=== PATIENT | male | born 1965 | race Caucasian/White ===

== ENCOUNTER 2021-07-17 13:50 | Inpatient (IN) | payer BC ==
[2021-07-17] MEDS ORDERED: Sodium Chloride 0.9% 10 ML Syringe FLUSH PRN (14:07)
[2021-07-17] MEDS ORDERED: Sodium Chloride 0.9% 2.5 ML Syringe FLUSH PRN (14:07)
[2021-07-17] MEDS ORDERED: Dexamethasone 4 MG/ML SDV IVPUSH ONE (14:10)
[2021-07-17] MEDS ORDERED: REMDESIVIR 200 MG in Sodium Chloride 0.9% 250 ML IV ONE ×2 (14:10→14:30)
--- NOTE | 2021-07-17 14:15 | EDM.PDOC ---
ED HPI GENERAL MEDICAL PROBLEM - General Chief Complaint: Respiratory Problem Stated Complaint: COVID POS, SOB Time Seen by Provider: 07/17/21 14:07 - History of Present Illness INITIAL COMMENTS - FREE TEXT/NARRATIVE: 55-year-old male presents to the emergency department complaining of shortness of breath. Patient has had cough and runny nose symptoms since 08 July. He started having shortness of breath over the next several days and was swabbed and positive for Covid today. He was sent over to the ED when he was noted to have an O2 saturation of 64%. Patient states that he had fevers at home. No chest pain. Patient denies history of blood clots. No leg swelling. No recent travel or injury or cancer or surgery. Patient denies history of asthma or COPD - Related Data Allergies Allergy/AdvReac Type Severity Reaction Status Date / Time No Known Allergies Allergy Verified 07/17/21 14:17 Home Meds: Home Meds . [No Known Home Meds] 07/17/21 [History] Past Medical History HEENT History: Reports: None Other HEENT History: sometimes wears glasses Cardiovascular History: Reports: None Respiratory History: Reports: None Gastrointestinal History: Reports: None Genitourinary History: Reports: None Musculoskeletal History: Reports: Arthritis, Fracture Other Musculoskeletal History: hx of fx right hand, left shoulder, left elbow Neurological History: Reports: None Psychiatric History: Reports: None Endocrine/Metabolic History: Reports: Obesity/BMI 30+ Hematologic History: Reports: None Immunologic History: Reports: None Oncologic (Cancer) History: Reports: None Dermatologic History: Reports: None - Past Surgical History Musculoskeletal Surgical History: Reports: Arthroscopic Knee, Knee Replacement, Shoulder Surgery ED ROS GENERAL - Review of Systems Review Of Systems: Comprehensive ROS is negative, except as noted in HPI. ED EXAM, GENERAL - Physical Exam Exam: See Below Free Text/Narrative:: CONSTITUTIONAL: Moderate distress SKIN: Warm, dry, and intact without rash HENT: Normocephalic, atraumatic, PULMONARY: Apnea, mild retractions, intermittent rales and wheeze CARDIOVASCULAR: regular rate, No murmur, rubs, or gallops GASTROINTESTINAL: soft, nondistended, nontender NEUROLOGIC: normal speech, II-XII intact. light touch/5/5 power equal and symmetric in upper and lower extremities without deficit MUSCULOSKELETAL: no gross deformities, atraumatic PSYCHIATRIC: normal mood and affect Course - Vital Signs Text/Narrative:: Differential diagnosis: Covid, bacterial pneumonia, CHF, PE, other Patient presents with shortness of breath and hypoxia in the setting of Covid pneumonia. Patient given steroids and remdesivir. The patient was on CPAP but did have some degree of wheezing so inline nebulizations were given. Patient was unable to maintain his saturations on high flow nasal cannula but is quite comfortable on CPAP eight. Admission for continued treatment and management Critical care: I spent 45 minutes of critical care time with this patient not including reportable procedures. There was an acute impairment of an organ system with a high probability of imminent or life threatening deterioration in the patient`s condition. Interventions and changes required in the course of therapy are located in the chart. Time involved was spent in direct patient care, reviewing ancillary data, old records, consulting with decision makers, EMS, other doctors, giving orders and documenting. Last Recorded V/S: Last Vital Signs Temp 38.8 C H 07/17/21 14:11 Pulse 118 H 07/17/21 16:01 Resp 30 H 07/17/21 16:01 BP 129/91 H 07/17/21 16:01 Pulse Ox 95 07/17/21 16:01 - Orders/Labs/Meds Orders: Active Orders 24 hr Category Date Time Status Admission Status [Patient Status] [ADT] Stat ADT 07/17/21 16:48 Active Cardiac Monitoring [RC] . DIRECTED Care 07/17/21 14:07 Active Pulse Oximetry [RC] ASDIRECTED Care 07/17/21 14:07 Active RT Aerosol Therapy [RC] ASDIRECTED Care 07/17/21 14:31 Active RT Post Treatment Assessment [RC] Click to Edit Care 07/17/21 14:19 Active RT Pre-Treatment Assessment [RC] Click to Edit Care 07/17/21 14:19 Active COVID-19/FLU A+B/RSV [MOLEC] Stat Lab 07/17/21 14:09 Ordered CULTURE BLOOD [BC] Stat Lab 07/17/21 14:20 Received CULTURE BLOOD [BC] Stat Lab 07/17/21 14:35 Received UA W/MARIA ELENA RFLX IF INDICATED [URIN] Stat Lab 07/17/21 14:08 Ordered Sodium Chloride 0.9% [Saline Flush] Med 07/17/21 14:07 Active 10 ml FLUSH ASDIRECTED PRN Sodium Chloride 0.9% [Saline Flush] Med 07/17/21 14:07 Active 2.5 ml FLUSH ASDIRECTED PRN Blood Culture x2 Reflex Set [OM.PC] Stat Oth 07/17/21 14:08 Ordered Saline Lock Insert [OM.PC] Stat Oth 07/17/21 14:07 Ordered Medication Orders Sodium Chloride (Sodium Chloride 0.9% 10 Ml Syringe) 10 ml FLUSH ASDIRECTED PRN PRN Reason: Keep Vein Open Last Admin: 07/17/21 14:39 Dose: 10 ml Documented by: LIZZIE Sodium Chloride (Sodium Chloride 0.9% 2.5 Ml Syringe) 2.5 ml FLUSH ASDIRECTED PRN PRN Reason: Keep Vein Open Last Admin: 07/17/21 14:39 Dose: 2.5 ml Documented by: [id number] Labs: Laboratory Tests 07/17/21 07/17/21 07/17/21 Range/Units 14:06 14:06 14:06 WBC 10.64 (4.0-11.0) K/uL RBC 5.78 (4.50-5.90) M/uL Hgb 16.1 (13.0-17.0) g/dL Hct 47.4 (38.0-50.0) % MCV 82.0 (80.0-98.0) fL MCH 27.9 (27.0-32.0) pg MCHC 34.0 (31.0-37.0) g/dL RDW Std Deviation 46.8 (28.0-62.0) fl RDW Coeff of Mary Anne 16 H (11.0-15.0) % Plt Count 157 (150-400) K/uL MPV 10.60 (7.40-12.00) fL Add Manual Diff YES Neutrophils % (Manual) 83 H (48.0-80.0) % Band Neutrophils % 1 % Lymphocytes % (Manual) 11 L (16.0-40.0) % Monocytes % (Manual) 5 (0.0-15.0) % Nucleated RBC % 0.0 /100WBC Absolute Seg Neuts 8.8 H (1.4-5.7) Band Neutrophils # 0.1 Lymphocytes # (Manual) 1.2 (0.6-2.4) Monocytes # (Manual) 0.5 (0.0-0.8) Nucleated RBCs # 0 K/uL INR D-Dimer, Quantitative (0.0-0.50) mg/L FEU Sodium 132 L (136-148) mmol/L Potassium 3.7 (3.5-5.1) mmol/L Chloride 94 L (98-107) mmol/L Carbon Dioxide 25.1 (21.0-32.0) mmol/L BUN 9 (7.0-18.0) mg/dL Creatinine 1.0 (0.8-1.3) mg/dL Est Cr Clr Drug Dosing 91.61 mL/min Estimated GFR (MDRD) > 60.0 ml/min Glucose 124 H (74-106) mg/dL Lactic Acid 1.9 (0.4-2.0) mmol/L Calcium 8.5 (8.5-10.1) mg/dL Total Bilirubin 0.8 (0.2-1.0) mg/dL AST 41 H (15-37) IU/L ALT 39 (14-63) IU/L Alkaline Phosphatase 65 (46-116) U/L Troponin I < 0.050 (0.000-0.056) ng/mL C-Reactive Protein 24.80 H (0.00-0.90) mg/dL B-Natriuretic Peptide (<100) PG/ML Total Protein 7.5 (6.4-8.2) g/dL Albumin 2.8 L (3.4-5.0) g/dL Globulin 4.7 H (2.6-4.0) g/dL Albumin/Globulin Ratio 0.6 L (0.9-1.6) 07/17/21 07/17/21 Range/Units 14:06 14:06 WBC (4.0-11.0) K/uL RBC (4.50-5.90) M/uL Hgb (13.0-17.0) g/dL Hct (38.0-50.0) % MCV (80.0-98.0) fL MCH (27.0-32.0) pg MCHC (31.0-37.0) g/dL RDW Std Deviation (28.0-62.0) fl RDW Coeff of Mary Anne (11.0-15.0) % Plt Count (150-400) K/uL MPV (7.40-12.00) fL Add Manual Diff Neutrophils % (Manual) (48.0-80.0) % Band Neutrophils % % Lymphocytes % (Manual) (16.0-40.0) % Monocytes % (Manual) (0.0-15.0) % Nucleated RBC % /100WBC Absolute Seg Neuts (1.4-5.7) Band Neutrophils # Lymphocytes # (Manual) (0.6-2.4) Monocytes # (Manual) (0.0-0.8) Nucleated RBCs # K/uL INR 1.05 D-Dimer, Quantitative 0.99 H (0.0-0.50) mg/L FEU Sodium (136-148) mmol/L Potassium (3.5-5.1) mmol/L Chloride (98-107) mmol/L Carbon Dioxide (21.0-32.0) mmol/L BUN (7.0-18.0) mg/dL Creatinine (0.8-1.3) mg/dL Est Cr Clr Drug Dosing mL/min Estimated GFR (MDRD) ml/min Glucose (74-106) mg/dL Lactic Acid (0.4-2.0) mmol/L Calcium (8.5-10.1) mg/dL Total Bilirubin (0.2-1.0) mg/dL AST (15-37) IU/L ALT (14-63) IU/L Alkaline Phosphatase (46-116) U/L Troponin I (0.000-0.056) ng/mL C-Reactive Protein (0.00-0.90) mg/dL B-Natriuretic Peptide 15 (<100) PG/ML Total Protein (6.4-8.2) g/dL Albumin (3.4-5.0) g/dL Globulin (2.6-4.0) g/dL Albumin/Globulin Ratio (0.9-1.6) Meds: Medications Generic Name Dose Route Start Last Admin Trade Name Freq PRN Reason Stop Dose Admin Sodium Chloride 10 ml 07/17/21 14:07 07/17/21 14:39 Sodium Chloride 0.9% 10 Ml Syringe FLUSH 10 ml ASDIRECTED PRN Administration Keep Vein Open Sodium Chloride 2.5 ml 07/17/21 14:07 07/17/21 14:39 Sodium Chloride 0.9% 2.5 Ml Syringe FLUSH 2.5 ml ASDIRECTED PRN Administration Keep Vein Open Discontinued Medications Generic Name Dose Route Start Last Admin Trade Name Freq PRN Reason Stop Dose Admin Albuterol 5 gm 07/17/21 14:18 07/17/21 14:39 Albuterol 8 Gm Inhaler INH 07/17/21 14:19 Not Given ONETIME ONE Albuterol 5 mg 07/17/21 14:31 07/17/21 14:34 Albuterol 0.083% 2.5 Mg/3 Ml Neb Soln NEB 07/17/21 14:32 5 mg ONETIME ONE Administration Albuterol Confirm 07/17/21 14:32 07/17/21 14:40 Albuterol 0.083% 2.5 Mg/3 Ml Neb Soln Administered 07/17/21 14:33 Not Given Dose 2.5 mg .ROUTE .STK-MED ONE Dexamethasone 6 mg 07/17/21 14:10 07/17/21 14:31 Dexamethasone 4 Mg/Ml Sdv IVPUSH 07/17/21 14:11 6 mg ONETIME ONE Administration Remdesivir 200 mg/ Sodium 250 mls @ 250 mls/hr 07/17/21 14:10 07/17/21 15:17 Chloride IV 07/17/21 14:11 250 mls/hr ONETIME ONE Administration Remdesivir 200 mg/ Sodium 250 mls @ 250 mls/hr 07/17/21 14:30 Chloride IV 07/17/21 15:29 ONETIME ONE Departure - Departure Time of Disposition: 16:51 Disposition: Admitted As Inpatient 66 Condition: Fair Clinical Impression: COVID, Hypoxia - Discharge Information Referrals: PCP,None [Primary Care Provider] - Forms: ED Department Discharge Sepsis Event Note (ED) - Focused Exam Vital Signs: Vital Signs Temp Pulse Resp BP Pulse Ox 07/17/21 16:01 118 H 30 H 129/91 H 95 07/17/21 14:11 38.8 C H 124 H 30 H 163/106 H 64 L - My Orders Last 24 Hours: My Active Orders 07/17/21 14:07 Cardiac Monitoring [RC] . DIRECTED Pulse Oximetry [RC] ASDIRECTED Sodium Chloride 0.9% [Saline Flush] 10 ml FLUSH ASDIRECTED PRN Sodium Chloride 0.9% [Saline Flush] 2.5 ml FLUSH ASDIRECTED PRN Saline Lock Insert [OM.PC] Stat 07/17/21 14:08 UA W/MARIA ELENA RFLX IF INDICATED [URIN] Stat Blood Culture x2 Reflex Set [OM.PC] Stat 07/17/21 14:09 COVID-19/FLU A+B/RSV [MOLEC] Stat 07/17/21 14:19 RT Post Treatment Assessment [RC] Click to Edit RT Pre-Treatment Assessment [RC] Click to Edit 07/17/21 14:20 CULTURE BLOOD [BC] Stat 07/17/21 14:35 CULTURE BLOOD [BC] Stat 07/17/21 16:48 Admission Status [Patient Status] [ADT] Stat - Assessment/Plan Last 24 Hours: My Active Orders 07/17/21 14:07 Cardiac Monitoring [RC] . DIRECTED Pulse Oximetry [RC] ASDIRECTED Sodium Chloride 0.9% [Saline Flush] 10 ml FLUSH ASDIRECTED PRN Sodium Chloride 0.9% [Saline Flush] 2.5 ml FLUSH ASDIRECTED PRN Saline Lock Insert [OM.PC] Stat 07/17/21 14:08 UA W/MARIA ELENA RFLX IF INDICATED [URIN] Stat Blood Culture x2 Reflex Set [OM.PC] Stat 07/17/21 14:09 COVID-19/FLU A+B/RSV [MOLEC] Stat 07/17/21 14:19 RT Post Treatment Assessment [RC] Click to Edit RT Pre-Treatment Assessment [RC] Click to Edit 07/17/21 14:20 CULTURE BLOOD [BC] Stat 07/17/21 14:35 CULTURE BLOOD [BC] Stat 07/17/21 16:48 Admission Status [Patient Status] [ADT] Stat
[2021-07-17] MEDS ORDERED: Albuterol 8 GM Inhaler INH ONE (14:18)
--- NOTE | 2021-07-17 14:26 | PCM.EKG ---
#1 Interpretation Time: 14:08 EKG Interpretation Comments: 122, sinus tachycardia, diffuse mild J point depression
[2021-07-17] MEDS ORDERED: Albuterol 0.083% 2.5 MG/3 ML Neb Soln NEB ONE (14:31)
[2021-07-17] MEDS ORDERED: Albuterol 0.083% 2.5 MG/3 ML Neb Soln ONE (14:32)
[2021-07-17 15:08] LABS: BLOOD UREA NITROGEN,BUN 9 mg/dL (7.0-18.0); CARBON DIOXIDE,CO2 25.1 mmol/L (21.0-32.0); CHLORIDE,CL 94 mmol/L (98-107); GLUCOSE RANDOM 124 mg/dL (74-106); POTASSIUM,K 3.7 mmol/L (3.5-5.1); SODIUM,NA 132 mmol/L (136-148)
--- NOTE | 2021-07-17 15:58 | CR ---
INDICATION: COVID. Chest pain COMPARISON: None TECHNIQUE: Single-view AP portable upright chest radiograph FINDINGS: TUBES AND LINES: None. HEART AND MEDIASTINUM: The heart size is normal. The mediastinal contour appears normal for patient age. LUNGS AND PLEURAL SPACES: Diffuse, bilateral and symmetric distribution of moderate to severe multifocal airspace disease.The primary considerations are pulmonary edema or a diffuse inflammatory process including COVID pneumonia. OSSEOUS STRUCTURES: Age-appropriate appearance. No acute focal finding. IMPRESSION: Diffuse, bilateral and symmetric distribution of moderate to severe multifocal airspace disease. Dictated by Osbaldo Laboy MD @ 07/17/2021 3:57:13 PM (Electronically Signed)
[2021-07-17] MEDS ORDERED: Iopamidol 755 MG/ML 500 ML Multipack Bottle IVPUSH STA (17:56)
--- NOTE | 2021-07-17 18:16 | CT ---
Indication: Elevated D-dimer. Shortness of breath. Positive for COVID. Technique: Multiple contiguous axial images were obtained from the thoracic inlet through the upper abdomen after the intravenous administration of 100 cc Isovue 370. Please note that all CT scans at this facility use dose modulation, iterative reconstruction, and/or weight-based dosing when appropriate to reduce radiation dose to as low as reasonably achievable. Comparison: None Findings: This exam is tailored for the evaluation of the pulmonary arteries. Please note, this is a limited study due to the patient`s body habitus. Heart is mildly enlarged. Coronary artery calcifications are identified. No pericardial effusion is identified. The aorta is normal in caliber. There is no evidence of aortic dissection. No pulmonary embolism is identified. Shotty mediastinal and hilar lymph nodes are identified. The visualized portions of the liver, spleen, pancreas, gallbladder, and adrenals are normal. Patchy bilateral ground-glass opacities are identified bilaterally. This is most consistent with COVID. Impression: Patchy bilateral ground-glass opacities, most consistent with COVID. No evidence of pulmonary embolism or aortic dissection. Limited quality of the study due to the patient`s body habitus. Please note that all CT scans at this facility use dose modulation, iterative reconstruction, and/or weight-based dosing when appropriate to reduce radiation dose to as low as reasonably achievable. Dictated by Lilliana Silva MD @ 07/17/2021 6:16:07 PM (Electronically Signed)
[2021-07-17] MEDS: Enoxaparin 40 MG/0.4 ML Syringe SUBCUT SCH ×2 (19:15→22:52)
[2021-07-17] MEDS ORDERED: Acetaminophen 325 MG Tab PO PRN (20:41)
--- NOTE | 2021-07-17 20:47 | PCM.HP.2 ---
H&P History of Present Illness - General Date of Service: 07/17/21 Admit Problem/Dx: Admission Diagnosis/Problem Admission Diagnosis/Problem Viral pneumonia - History of Present Illness Initial Comments - Free Text/Narative: 55 yo male who presents with one week history of fevers, cough, diarrhea and shortness of breath for four days. Patient was desating to the 60s on RA and was placed on CPAP which he has tolerated well. CT angio was negative for PE but showed bilateral patchy infiltrates. PAtient is postive for COVID. - Related Data Allergies/Adverse Reactions: Allergies Allergy/AdvReac Type Severity Reaction Status Date / Time No Known Allergies Allergy Verified 07/17/21 14:17 Home Medications: Home Meds . [No Known Home Meds] 07/17/21 [History] Past Medical History HEENT History: Reports: None Other HEENT History: sometimes wears glasses Cardiovascular History: Reports: None Respiratory History: Reports: None Gastrointestinal History: Reports: None Genitourinary History: Reports: None Musculoskeletal History: Reports: Arthritis, Fracture Other Musculoskeletal History: hx of fx right hand, left shoulder, left elbow Neurological History: Reports: None Psychiatric History: Reports: None Endocrine/Metabolic History: Reports: Obesity/BMI 30+ Hematologic History: Reports: None Immunologic History: Reports: None Oncologic (Cancer) History: Reports: None Dermatologic History: Reports: None - Infectious Disease History Infectious Disease History: Reports: None - Past Surgical History Head Surgeries/Procedures: Reports: None HEENT Surgical History: Reports: None Cardiovascular Surgical History: Reports: None Respiratory Surgical History: Reports: None GI Surgical History: Reports: None Male Surgical History: Reports: None Endocrine Surgical History: Reports: None Neurological Surgical History: Reports: None Musculoskeletal Surgical History: Reports: Arthroscopic Knee, Knee Replacement, Shoulder Surgery Other Musculoskeletal Surgeries/Procedures:: bilateral knee arthroscopy, left TKA, pinning of left shoulder, left elbow pinning with pin removal Oncologic Surgical History: Reports: None Dermatological Surgical History: Reports: None Social & Family History - Family History Family Medical History: No Pertinent Family History - Tobacco Use Tobacco Use Status *Q: Never Tobacco User Second Hand Smoke Exposure: No - Caffeine Use Caffeine Use: Reports: None - Recreational Drug Use Recreational Drug Use: No H&P Review of Systems - Review of Systems: Review Of Systems: Comprehensive ROS is negative, except as noted in HPI. Exam - Exam Exam: See Below - Vital Signs Vital Signs: Last Vital Signs Temp 38.8 C H 07/17/21 14:11 Pulse 102 H 07/17/21 19:16 Resp 20 07/17/21 19:16 BP 140/88 07/17/21 19:16 Pulse Ox 96 07/17/21 19:16 Weight: 156.4 kg - Exam General: Alert, Oriented Lungs: Normal Respiratory Effort, Rhonchi Cardiovascular: Regular Rate, Regular Rhythm GI/Abdominal Exam: Soft, Non-Tender, No Distention Extremities: Non-Tender, No Pedal Edema Skin: Warm, Dry, Intact Neurological: No: Focal Deficit - Patient Data Lab Results Last 24 hrs: Laboratory Results - last 24 hr 07/17/21 07/17/21 07/17/21 Range/Units 14:06 14:06 14:06 WBC 10.64 (4.0-11.0) K/uL RBC 5.78 (4.50-5.90) M/uL Hgb 16.1 (13.0-17.0) g/dL Hct 47.4 (38.0-50.0) % MCV 82.0 (80.0-98.0) fL MCH 27.9 (27.0-32.0) pg MCHC 34.0 (31.0-37.0) g/dL RDW Std Deviation 46.8 (28.0-62.0) fl RDW Coeff of Mary Anne 16 H (11.0-15.0) % Plt Count 157 (150-400) K/uL MPV 10.60 (7.40-12.00) fL Add Manual Diff YES Neutrophils % (Manual) 83 H (48.0-80.0) % Band Neutrophils % 1 % Lymphocytes % (Manual) 11 L (16.0-40.0) % Monocytes % (Manual) 5 (0.0-15.0) % Nucleated RBC % 0.0 /100WBC Absolute Seg Neuts 8.8 H (1.4-5.7) Band Neutrophils # 0.1 Lymphocytes # (Manual) 1.2 (0.6-2.4) Monocytes # (Manual) 0.5 (0.0-0.8) Nucleated RBCs # 0 K/uL INR D-Dimer, Quantitative (0.0-0.50) mg/L FEU Sodium 132 L (136-148) mmol/L Potassium 3.7 (3.5-5.1) mmol/L Chloride 94 L (98-107) mmol/L Carbon Dioxide 25.1 (21.0-32.0) mmol/L BUN 9 (7.0-18.0) mg/dL Creatinine 1.0 (0.8-1.3) mg/dL Est Cr Clr Drug Dosing 91.61 mL/min Estimated GFR (MDRD) > 60.0 ml/min Glucose 124 H (74-106) mg/dL Lactic Acid 1.9 (0.4-2.0) mmol/L Calcium 8.5 (8.5-10.1) mg/dL Total Bilirubin 0.8 (0.2-1.0) mg/dL AST 41 H (15-37) IU/L ALT 39 (14-63) IU/L Alkaline Phosphatase 65 (46-116) U/L Troponin I < 0.050 (0.000-0.056) ng/mL C-Reactive Protein 24.80 H (0.00-0.90) mg/dL B-Natriuretic Peptide (<100) PG/ML Total Protein 7.5 (6.4-8.2) g/dL Albumin 2.8 L (3.4-5.0) g/dL Globulin 4.7 H (2.6-4.0) g/dL Albumin/Globulin Ratio 0.6 L (0.9-1.6) 07/17/21 07/17/21 Range/Units 14:06 14:06 WBC (4.0-11.0) K/uL RBC (4.50-5.90) M/uL Hgb (13.0-17.0) g/dL Hct (38.0-50.0) % MCV (80.0-98.0) fL MCH (27.0-32.0) pg MCHC (31.0-37.0) g/dL RDW Std Deviation (28.0-62.0) fl RDW Coeff of Mary Anne (11.0-15.0) % Plt Count (150-400) K/uL MPV (7.40-12.00) fL Add Manual Diff Neutrophils % (Manual) (48.0-80.0) % Band Neutrophils % % Lymphocytes % (Manual) (16.0-40.0) % Monocytes % (Manual) (0.0-15.0) % Nucleated RBC % /100WBC Absolute Seg Neuts (1.4-5.7) Band Neutrophils # Lymphocytes # (Manual) (0.6-2.4) Monocytes # (Manual) (0.0-0.8) Nucleated RBCs # K/uL INR 1.05 D-Dimer, Quantitative 0.99 H (0.0-0.50) mg/L FEU Sodium (136-148) mmol/L Potassium (3.5-5.1) mmol/L Chloride (98-107) mmol/L Carbon Dioxide (21.0-32.0) mmol/L BUN (7.0-18.0) mg/dL Creatinine (0.8-1.3) mg/dL Est Cr Clr Drug Dosing mL/min Estimated GFR (MDRD) ml/min Glucose (74-106) mg/dL Lactic Acid (0.4-2.0) mmol/L Calcium (8.5-10.1) mg/dL Total Bilirubin (0.2-1.0) mg/dL AST (15-37) IU/L ALT (14-63) IU/L Alkaline Phosphatase (46-116) U/L Troponin I (0.000-0.056) ng/mL C-Reactive Protein (0.00-0.90) mg/dL B-Natriuretic Peptide 15 (<100) PG/ML Total Protein (6.4-8.2) g/dL Albumin (3.4-5.0) g/dL Globulin (2.6-4.0) g/dL Albumin/Globulin Ratio (0.9-1.6) Result Diagrams: 07/17/21 14:06 07/17/21 14:06 Sepsis Event Note - Evaluation Sepsis Screening Result: Possible Sepsis Risk - Focused Exam Vital Signs: Vital Signs Temp Pulse Resp BP Pulse Ox 07/17/21 19:16 102 H 20 140/88 96 07/17/21 16:01 118 H 30 H 129/91 H 95 07/17/21 14:11 38.8 C H 124 H 30 H 163/106 H 64 L 07/17/21 14:00 101 H 136/88 91 L - Problem List (1) COVID SNOMED Code(s): 465860981 ICD Code: U07.1 - COVID-19 Status: Acute Current Visit: Yes (2) Hypoxia SNOMED Code(s): 573627649 ICD Code: R09.02 - HYPOXEMIA Status: Acute Current Visit: Yes Problem List Initiated/Reviewed/Updated: Yes Orders Last 24hrs: Active Orders 24 hr Category Date Time Status Admission Status [Patient Status] [ADT] Stat ADT 07/17/21 16:48 Active Cardiac Monitoring [RC] . DIRECTED Care 07/17/21 14:07 Active Pulse Oximetry [RC] ASDIRECTED Care 07/17/21 14:07 Active RT Aerosol Therapy [RC] ASDIRECTED Care 07/17/21 14:31 Active RT Post Treatment Assessment [RC] Click to Edit Care 07/17/21 14:19 Active RT Pre-Treatment Assessment [RC] Click to Edit Care 07/17/21 14:19 Active COVID-19/FLU A+B/RSV [MOLEC] Stat Lab 07/17/21 14:09 Ordered CULTURE BLOOD [BC] Stat Lab 07/17/21 14:20 Received CULTURE BLOOD [BC] Stat Lab 07/17/21 14:35 Received UA W/MARIA ELENA RFLX IF INDICATED [URIN] Stat Lab 07/17/21 14:08 Ordered Baricitinib [Olumiant] Med 07/17/21 17:15 Active 4 mg PO Q24H Enoxaparin [Lovenox] Med 07/17/21 17:08 Active 40 mg SUBCUT Q12HR Remdesivir 100 mg Med 07/18/21 14:00 Active Sodium Chloride 0.9% [Normal Saline AdvBag] 100 ml IV Q24H Sodium Chloride 0.9% [Saline Flush] Med 07/17/21 14:07 Active 10 ml FLUSH ASDIRECTED PRN Sodium Chloride 0.9% [Saline Flush] Med 07/17/21 14:07 Active 2.5 ml FLUSH ASDIRECTED PRN dexAMETHasone Med 07/18/21 14:00 Active 6 mg PO Q24H Blood Culture x2 Reflex Set [OM.PC] Stat Oth 07/17/21 14:08 Ordered Saline Lock Insert [OM.PC] Stat Oth 07/17/21 14:07 Ordered Medication Orders Baricitinib (Baricitinib 2 Mg Tab) 4 mg PO Q24H BELEN Dexamethasone (Dexamethasone 4 Mg Tab) 6 mg PO Q24H BELEN Enoxaparin Sodium (Enoxaparin 40 Mg/0.4 Ml Syringe) 40 mg SUBCUT Q12HR [facility] Last Admin: 07/17/21 19:15 Dose: 40 mg Documented by: [id number] Remdesivir 100 mg/ Sodium (Chloride) 100 mls @ 100 mls/hr IV Q24H [facility] Stop: 07/21/21 14:59 Sodium Chloride (Sodium Chloride 0.9% 10 Ml Syringe) 10 ml FLUSH ASDIRECTED PRN PRN Reason: Keep Vein Open Last Admin: 07/17/21 14:39 Dose: 10 ml Documented by: LIZZIE Sodium Chloride (Sodium Chloride 0.9% 2.5 Ml Syringe) 2.5 ml FLUSH ASDIRECTED PRN PRN Reason: Keep Vein Open Last Admin: 07/17/21 14:39 Dose: 2.5 ml Documented by: LIZZIE Assessment/Plan Comment:: 55 yo male admitted for COVID-19 pneumonia with acute hypoxic respiratory fail ure Hypoxia: currently on CPAP and looks comfortable COVID-19: treating with dexamethasone and remdesivir. Patient was explaned the FDA EUA on barcitinib and has consented to its use lovenox for DVT prophylaxis.
[2021-07-17] MEDS ORDERED: Albuterol/Ipratropium 4 GM Inhalation Spray INH PRN (20:49)
[2021-07-18] MEDS: Enoxaparin 40 MG/0.4 ML Syringe SUBCUT SCH ×2 (06:39→18:24)
[2021-07-18 07:52] LABS: BLOOD UREA NITROGEN,BUN 15 mg/dL (7.0-18.0); CHLORIDE,CL 99 mmol/L (98-107); GLUCOSE RANDOM 164 mg/dL (74-106); POTASSIUM,K 3.9 mmol/L (3.5-5.1); SODIUM,NA 135 mmol/L (136-148)
--- NOTE | 2021-07-18 09:46 | PCM.PN ---
- General Info Date of Service: 07/18/21 Subjective Update: The patient is a 55-year-old obese male, on day 2 of service, with a significant past medical history of obesity with a BMI over 45 and arthritis, who was admitted to the medical floor due to infection with COVID-19 pneumonia. He is currently on CPAP, with a oxygen flow rate of 8, FiO2 of 50, respiratory rate of 19, and is saturating at 94%. Upon interview with the patient today, he admits that he continues to have shortness of breath at rest and even during ambulation. He admits that his cough is slightly better today than it was on admission. He has no issues with eating and drinking. He denies chest pain, palpitations, abdominal pain, headache, nausea, vomiting, diarrhea, or any issues with urination and/or defecation. He has no other health concerns at this time. - Review of Systems General: Reports: Fatigue. Denies: Fever HEENT: Denies: Headaches, Sore Throat Pulmonary: Reports: Shortness of Breath, Cough Cardiovascular: Reports: Dyspnea on Exertion. Denies: Chest Pain, Palpitations Gastrointestinal: Denies: Abdominal Pain Genitourinary: Denies: Dysuria - Patient Data Vitals - Most Recent: Last Vital Signs Temp 96.8 F L 07/18/21 04:00 Pulse 74 07/18/21 04:00 Resp 19 07/18/21 04:00 BP 147/88 H 07/18/21 04:00 Pulse Ox 94 L 07/18/21 04:00 Weight - Most Recent: 344 lb 12.847 oz I&O - Last 24 Hours: Intake & Output 07/17/21 07/18/21 07/18/21 22:59 06:59 14:59 Intake Total 800 Output Total 1100 Balance -300 Lab Results Last 24 Hours: Laboratory Results - last 24 hr 07/17/21 07/17/21 07/17/21 Range/Units 14:06 14:06 14:06 WBC 10.64 (4.0-11.0) K/uL RBC 5.78 (4.50-5.90) M/uL Hgb 16.1 (13.0-17.0) g/dL Hct 47.4 (38.0-50.0) % MCV 82.0 (80.0-98.0) fL MCH 27.9 (27.0-32.0) pg MCHC 34.0 (31.0-37.0) g/dL RDW Std Deviation 46.8 (28.0-62.0) fl RDW Coeff of [place] 16 H (11.0-15.0) % Plt Count 157 (150-400) K/uL MPV 10.60 (7.40-12.00) fL Add Manual Diff YES Neutrophils % (Manual) 83 H (48.0-80.0) % Band Neutrophils % 1 % Lymphocytes % (Manual) 11 L (16.0-40.0) % Monocytes % (Manual) 5 (0.0-15.0) % Nucleated RBC % 0.0 /100WBC Absolute Seg Neuts 8.8 H (1.4-5.7) Band Neutrophils # 0.1 Lymphocytes # (Manual) 1.2 (0.6-2.4) Monocytes # (Manual) 0.5 (0.0-0.8) Nucleated RBCs # 0 K/uL INR D-Dimer, Quantitative (0.0-0.50) mg/L FEU Sodium 132 L (136-148) mmol/L Potassium 3.7 (3.5-5.1) mmol/L Chloride 94 L (98-107) mmol/L Carbon Dioxide 25.1 (21.0-32.0) mmol/L BUN 9 (7.0-18.0) mg/dL Creatinine 1.0 (0.8-1.3) mg/dL Est Cr Clr Drug Dosing 91.61 mL/min Estimated GFR (MDRD) > 60.0 ml/min Glucose 124 H (74-106) mg/dL Lactic Acid 1.9 (0.4-2.0) mmol/L Calcium 8.5 (8.5-10.1) mg/dL Total Bilirubin 0.8 (0.2-1.0) mg/dL AST 41 H (15-37) IU/L ALT 39 (14-63) IU/L Alkaline Phosphatase 65 (46-116) U/L Troponin I < 0.050 (0.000-0.056) ng/mL C-Reactive Protein 24.80 H (0.00-0.90) mg/dL B-Natriuretic Peptide (<100) PG/ML Total Protein 7.5 (6.4-8.2) g/dL Albumin 2.8 L (3.4-5.0) g/dL Globulin 4.7 H (2.6-4.0) g/dL Albumin/Globulin Ratio 0.6 L (0.9-1.6) Urine Color Urine Appearance Urine pH (5.0-8.0) Ur Specific [place] (1.001-1.035) Urine Protein (NEGATIVE) mg/dL Urine Glucose (UA) (NEGATIVE) mg/dL Urine Ketones (NEGATIVE) mg/dL Urine Occult Blood (NEGATIVE) Urine Nitrite (NEGATIVE) Urine Bilirubin (NEGATIVE) Urine Urobilinogen (<2.0) EU/dL Ur Leukocyte Esterase (NEGATIVE) Urine RBC (0-2/HPF) Urine WBC (0-5/HPF) Ur Epithelial Cells (NONE-FEW) Urine Bacteria (NEGATIVE) 07/17/21 07/17/21 07/18/21 Range/Units 14:06 14:06 04:50 WBC (4.0-11.0) K/uL RBC (4.50-5.90) M/uL Hgb (13.0-17.0) g/dL Hct (38.0-50.0) % MCV (80.0-98.0) fL MCH (27.0-32.0) pg MCHC (31.0-37.0) g/dL RDW Std Deviation (28.0-62.0) fl RDW Coeff of [place] (11.0-15.0) % Plt Count (150-400) K/uL MPV (7.40-12.00) fL Add Manual Diff Neutrophils % (Manual) (48.0-80.0) % Band Neutrophils % % Lymphocytes % (Manual) (16.0-40.0) % Monocytes % (Manual) (0.0-15.0) % Nucleated RBC % /100WBC Absolute Seg Neuts (1.4-5.7) Band Neutrophils # Lymphocytes # (Manual) (0.6-2.4) Monocytes # (Manual) (0.0-0.8) Nucleated RBCs # K/uL INR 1.05 D-Dimer, Quantitative 0.99 H (0.0-0.50) mg/L FEU Sodium (136-148) mmol/L Potassium (3.5-5.1) mmol/L Chloride (98-107) mmol/L Carbon Dioxide (21.0-32.0) mmol/L BUN (7.0-18.0) mg/dL Creatinine (0.8-1.3) mg/dL Est Cr Clr Drug Dosing mL/min Estimated GFR (MDRD) ml/min Glucose (74-106) mg/dL Lactic Acid (0.4-2.0) mmol/L Calcium (8.5-10.1) mg/dL Total Bilirubin (0.2-1.0) mg/dL AST (15-37) IU/L ALT (14-63) IU/L Alkaline Phosphatase (46-116) U/L Troponin I (0.000-0.056) ng/mL C-Reactive Protein (0.00-0.90) mg/dL B-Natriuretic Peptide 15 (<100) PG/ML Total Protein (6.4-8.2) g/dL Albumin (3.4-5.0) g/dL Globulin (2.6-4.0) g/dL Albumin/Globulin Ratio (0.9-1.6) Urine Color YELLOW Urine Appearance CLEAR Urine pH 6.0 (5.0-8.0) Ur Specific [place] 1.020 (1.001-1.035) Urine Protein NEGATIVE (NEGATIVE) mg/dL Urine Glucose (UA) NEGATIVE (NEGATIVE) mg/dL Urine Ketones NEGATIVE (NEGATIVE) mg/dL Urine Occult Blood TRACE-INTACT H (NEGATIVE) Urine Nitrite NEGATIVE (NEGATIVE) Urine Bilirubin NEGATIVE (NEGATIVE) Urine Urobilinogen 2.0 H (<2.0) EU/dL Ur Leukocyte Esterase NEGATIVE (NEGATIVE) Urine RBC 0-2 (0-2/HPF) Urine WBC 0-1 (0-5/HPF) Ur Epithelial Cells OCCASIONAL (NONE-FEW) Urine Bacteria FEW (NEGATIVE) 07/18/21 07/18/21 Range/Units 06:28 06:28 WBC 5.20 (4.0-11.0) K/uL RBC 5.45 (4.50-5.90) M/uL Hgb 14.9 (13.0-17.0) g/dL Hct 45.2 (38.0-50.0) % MCV 82.9 (80.0-98.0) fL MCH 27.3 (27.0-32.0) pg MCHC 33.0 (31.0-37.0) g/dL RDW Std Deviation 47.3 (28.0-62.0) fl RDW Coeff of [place] 16 H (11.0-15.0) % Plt Count 132 L (150-400) K/uL MPV 10.90 (7.40-12.00) fL Add Manual Diff YES Neutrophils % (Manual) 80 (48.0-80.0) % Band Neutrophils % 2 % Lymphocytes % (Manual) 13 L (16.0-40.0) % Monocytes % (Manual) 5 (0.0-15.0) % Nucleated RBC % 0.0 /100WBC Absolute Seg Neuts 4.2 (1.4-5.7) Band Neutrophils # 0.1 Lymphocytes # (Manual) 0.7 (0.6-2.4) Monocytes # (Manual) 0.3 (0.0-0.8) Nucleated RBCs # 0 K/uL INR D-Dimer, Quantitative (0.0-0.50) mg/L FEU Sodium 135 L (136-148) mmol/L Potassium 3.9 (3.5-5.1) mmol/L Chloride 99 (98-107) mmol/L Carbon Dioxide 28.0 (21.0-32.0) mmol/L BUN 15 (7.0-18.0) mg/dL Creatinine 0.8 (0.8-1.3) mg/dL Est Cr Clr Drug Dosing 114.51 mL/min Estimated GFR (MDRD) > 60.0 ml/min Glucose 164 H (74-106) mg/dL Lactic Acid (0.4-2.0) mmol/L Calcium 7.9 L (8.5-10.1) mg/dL Total Bilirubin 0.5 (0.2-1.0) mg/dL AST 31 (15-37) IU/L ALT 33 (14-63) IU/L Alkaline Phosphatase 57 (46-116) U/L Troponin I (0.000-0.056) ng/mL C-Reactive Protein (0.00-0.90) mg/dL B-Natriuretic Peptide (<100) PG/ML Total Protein 6.9 (6.4-8.2) g/dL Albumin 2.5 L (3.4-5.0) g/dL Globulin 4.4 H (2.6-4.0) g/dL Albumin/Globulin Ratio 0.6 L (0.9-1.6) Urine Color Urine Appearance Urine pH (5.0-8.0) Ur Specific [place] (1.001-1.035) Urine Protein (NEGATIVE) mg/dL Urine Glucose (UA) (NEGATIVE) mg/dL Urine Ketones (NEGATIVE) mg/dL Urine Occult Blood (NEGATIVE) Urine Nitrite (NEGATIVE) Urine Bilirubin (NEGATIVE) Urine Urobilinogen (<2.0) EU/dL Ur Leukocyte Esterase (NEGATIVE) Urine RBC (0-2/HPF) Urine WBC (0-5/HPF) Ur Epithelial Cells (NONE-FEW) Urine Bacteria (NEGATIVE) Med Orders - Current: Current Medications Acetaminophen (Acetaminophen 325 Mg Tab) 650 mg PO Q4H PRN PRN Reason: Pain (Mild 1-3)/fever Albuterol/Ipratropium (Albuterol/Ipratropium 4 Gm Inhalation [place]) 0 gm INH QID PRN PRN Reason: wheezing Baricitinib (Baricitinib 2 Mg Tab) 4 mg PO Q24H [facility] Last Admin: 07/17/21 22:56 Dose: 4 mg Documented by: Benzonatate (Benzonatate 100 Mg Cap) 100 mg PO Q6H PRN PRN Reason: Cough Dexamethasone (Dexamethasone 4 Mg Tab) 6 mg PO Q24H [facility] Enoxaparin Sodium (Enoxaparin 40 Mg/0.4 Ml Syringe) 40 mg SUBCUT Q12H [facility] Last Admin: 07/18/21 06:39 Dose: 40 mg Documented by: Remdesivir 100 mg/ Sodium (Chloride) 100 mls @ 100 mls/hr IV Q24H [facility] Stop: 07/21/21 14:59 Sodium Chloride (Sodium Chloride 0.9% 10 Ml Syringe) 10 ml FLUSH ASDIRECTED PRN PRN Reason: Keep Vein Open Last Admin: 07/17/21 14:39 Dose: 10 ml Documented by: Sodium Chloride (Sodium Chloride 0.9% 2.5 Ml Syringe) 2.5 ml FLUSH ASDIRECTED PRN PRN Reason: Keep Vein Open Last Admin: 07/17/21 14:39 Dose: 2.5 ml Documented by: Discontinued Medications Albuterol (Albuterol 8 Gm Inhaler) 5 gm INH ONETIME ONE Stop: 07/17/21 14:19 Last Admin: 07/17/21 14:39 Dose: Not Given Documented by: Albuterol (Albuterol 0.083% 2.5 Mg/3 Ml Neb Soln) 5 mg NEB ONETIME ONE Stop: 07/17/21 14:32 Last Admin: 07/17/21 14:34 Dose: 5 mg Documented by: Albuterol (Albuterol 0.083% 2.5 Mg/3 Ml Neb Soln) Confirm Administered Dose 2.5 mg .ROUTE .STK-MED ONE Stop: 07/17/21 14:33 Last Admin: 07/17/21 14:40 Dose: Not Given Documented by: Baricitinib (Baricitinib 2 Mg Tab) 4 mg PO Q24H [facility] Last Admin: 07/17/21 22:51 Dose: Not Given Documented by: Dexamethasone (Dexamethasone 4 Mg/Ml Sdv) 6 mg IVPUSH ONETIME ONE Stop: 07/17/21 14:11 Last Admin: 07/17/21 14:31 Dose: 6 mg Documented by: Enoxaparin Sodium (Enoxaparin 40 Mg/0.4 Ml Syringe) 40 mg SUBCUT Q12HR [facility] Last Admin: 07/17/21 22:52 Dose: Not Given Documented by: Remdesivir 200 mg/ Sodium (Chloride) 250 mls @ 250 mls/hr IV ONETIME ONE Stop: 07/17/21 14:11 Last Admin: 07/17/21 15:17 Dose: 250 mls/hr Documented by: Remdesivir 200 mg/ Sodium (Chloride) 250 mls @ 250 mls/hr IV ONETIME ONE Stop: 07/17/21 15:29 Last Admin: 07/17/21 17:07 Dose: Not Given Documented by: Iopamidol (Iopamidol 755 Mg/Ml 500 Ml Multipack Bottle) 100 ml IVPUSH ONETIME STA Stop: 07/17/21 17:57 Last Admin: 07/17/21 17:56 Dose: 100 ml Documented by: - Exam General: Alert, Oriented, Cooperative HEENT: Other (Dry mucous membranes) Neck: Trachea Midline Lungs: Wheezing Cardiovascular: Regular Rate, Regular Rhythm, No Murmurs GI/Abdominal Exam: Normal Bowel Sounds, Soft, Non-Tender, Other (Obese body habitus) - Patient Data Lab Results Last 24 hrs: Laboratory Results - last 24 hr 07/17/21 07/17/21 07/17/21 Range/Units 14:06 14:06 14:06 WBC 10.64 (4.0-11.0) K/uL RBC 5.78 (4.50-5.90) M/uL Hgb 16.1 (13.0-17.0) g/dL Hct 47.4 (38.0-50.0) % MCV 82.0 (80.0-98.0) fL MCH 27.9 (27.0-32.0) pg MCHC 34.0 (31.0-37.0) g/dL RDW Std Deviation 46.8 (28.0-62.0) fl RDW Coeff of [place] 16 H (11.0-15.0) % Plt Count 157 (150-400) K/uL MPV 10.60 (7.40-12.00) fL Add Manual Diff YES Neutrophils % (Manual) 83 H (48.0-80.0) % Band Neutrophils % 1 % Lymphocytes % (Manual) 11 L (16.0-40.0) % Monocytes % (Manual) 5 (0.0-15.0) % Nucleated RBC % 0.0 /100WBC Absolute Seg Neuts 8.8 H (1.4-5.7) Band Neutrophils # 0.1 Lymphocytes # (Manual) 1.2 (0.6-2.4) Monocytes # (Manual) 0.5 (0.0-0.8) Nucleated RBCs # 0 K/uL INR D-Dimer, Quantitative (0.0-0.50) mg/L FEU Sodium 132 L (136-148) mmol/L Potassium 3.7 (3.5-5.1) mmol/L Chloride 94 L (98-107) mmol/L Carbon Dioxide 25.1 (21.0-32.0) mmol/L BUN 9 (7.0-18.0) mg/dL Creatinine 1.0 (0.8-1.3) mg/dL Est Cr Clr Drug Dosing 91.61 mL/min Estimated GFR (MDRD) > 60.0 ml/min Glucose 124 H (74-106) mg/dL Lactic Acid 1.9 (0.4-2.0) mmol/L Calcium 8.5 (8.5-10.1) mg/dL Total Bilirubin 0.8 (0.2-1.0) mg/dL AST 41 H (15-37) IU/L ALT 39 (14-63) IU/L Alkaline Phosphatase 65 (46-116) U/L Troponin I < 0.050 (0.000-0.056) ng/mL C-Reactive Protein 24.80 H (0.00-0.90) mg/dL B-Natriuretic Peptide (<100) PG/ML Total Protein 7.5 (6.4-8.2) g/dL Albumin 2.8 L (3.4-5.0) g/dL Globulin 4.7 H (2.6-4.0) g/dL Albumin/Globulin Ratio 0.6 L (0.9-1.6) Urine Color Urine Appearance Urine pH (5.0-8.0) Ur Specific [place] (1.001-1.035) Urine Protein (NEGATIVE) mg/dL Urine Glucose (UA) (NEGATIVE) mg/dL Urine Ketones (NEGATIVE) mg/dL Urine Occult Blood (NEGATIVE) Urine Nitrite (NEGATIVE) Urine Bilirubin (NEGATIVE) Urine Urobilinogen (<2.0) EU/dL Ur Leukocyte Esterase (NEGATIVE) Urine RBC (0-2/HPF) Urine WBC (0-5/HPF) Ur Epithelial Cells (NONE-FEW) Urine Bacteria (NEGATIVE) 07/17/21 07/17/21 07/18/21 Range/Units 14:06 14:06 04:50 WBC (4.0-11.0) K/uL RBC (4.50-5.90) M/uL Hgb (13.0-17.0) g/dL Hct (38.0-50.0) % MCV (80.0-98.0) fL MCH (27.0-32.0) pg MCHC (31.0-37.0) g/dL RDW Std Deviation (28.0-62.0) fl RDW Coeff of [place] (11.0-15.0) % Plt Count (150-400) K/uL MPV (7.40-12.00) fL Add Manual Diff Neutrophils % (Manual) (48.0-80.0) % Band Neutrophils % % Lymphocytes % (Manual) (16.0-40.0) % Monocytes % (Manual) (0.0-15.0) % Nucleated RBC % /100WBC Absolute Seg Neuts (1.4-5.7) Band Neutrophils # Lymphocytes # (Manual) (0.6-2.4) Monocytes # (Manual) (0.0-0.8) Nucleated RBCs # K/uL INR 1.05 D-Dimer, Quantitative 0.99 H (0.0-0.50) mg/L FEU Sodium (136-148) mmol/L Potassium (3.5-5.1) mmol/L Chloride (98-107) mmol/L Carbon Dioxide (21.0-32.0) mmol/L BUN (7.0-18.0) mg/dL Creatinine (0.8-1.3) mg/dL Est Cr Clr Drug Dosing mL/min Estimated GFR (MDRD) ml/min Glucose (74-106) mg/dL Lactic Acid (0.4-2.0) mmol/L Calcium (8.5-10.1) mg/dL Total Bilirubin (0.2-1.0) mg/dL AST (15-37) IU/L ALT (14-63) IU/L Alkaline Phosphatase (46-116) U/L Troponin I (0.000-0.056) ng/mL C-Reactive Protein (0.00-0.90) mg/dL B-Natriuretic Peptide 15 (<100) PG/ML Total Protein (6.4-8.2) g/dL Albumin (3.4-5.0) g/dL Globulin (2.6-4.0) g/dL Albumin/Globulin Ratio (0.9-1.6) Urine Color YELLOW Urine Appearance CLEAR Urine pH 6.0 (5.0-8.0) Ur Specific [place] 1.020 (1.001-1.035) Urine Protein NEGATIVE (NEGATIVE) mg/dL Urine Glucose (UA) NEGATIVE (NEGATIVE) mg/dL Urine Ketones NEGATIVE (NEGATIVE) mg/dL Urine Occult Blood TRACE-INTACT H (NEGATIVE) Urine Nitrite NEGATIVE (NEGATIVE) Urine Bilirubin NEGATIVE (NEGATIVE) Urine Urobilinogen 2.0 H (<2.0) EU/dL Ur Leukocyte Esterase NEGATIVE (NEGATIVE) Urine RBC 0-2 (0-2/HPF) Urine WBC 0-1 (0-5/HPF) Ur Epithelial Cells OCCASIONAL (NONE-FEW) Urine Bacteria FEW (NEGATIVE) 07/18/21 07/18/21 Range/Units 06:28 06:28 WBC 5.20 (4.0-11.0) K/uL RBC 5.45 (4.50-5.90) M/uL Hgb 14.9 (13.0-17.0) g/dL Hct 45.2 (38.0-50.0) % MCV 82.9 (80.0-98.0) fL MCH 27.3 (27.0-32.0) pg MCHC 33.0 (31.0-37.0) g/dL RDW Std Deviation 47.3 (28.0-62.0) fl RDW Coeff of [place] 16 H (11.0-15.0) % Plt Count 132 L (150-400) K/uL MPV 10.90 (7.40-12.00) fL Add Manual Diff YES Neutrophils % (Manual) 80 (48.0-80.0) % Band Neutrophils % 2 % Lymphocytes % (Manual) 13 L (16.0-40.0) % Monocytes % (Manual) 5 (0.0-15.0) % Nucleated RBC % 0.0 /100WBC Absolute Seg Neuts 4.2 (1.4-5.7) Band Neutrophils # 0.1 Lymphocytes # (Manual) 0.7 (0.6-2.4) Monocytes # (Manual) 0.3 (0.0-0.8) Nucleated RBCs # 0 K/uL INR D-Dimer, Quantitative (0.0-0.50) mg/L FEU Sodium 135 L (136-148) mmol/L Potassium 3.9 (3.5-5.1) mmol/L Chloride 99 (98-107) mmol/L Carbon Dioxide 28.0 (21.0-32.0) mmol/L BUN 15 (7.0-18.0) mg/dL Creatinine 0.8 (0.8-1.3) mg/dL Est Cr Clr Drug Dosing 114.51 mL/min Estimated GFR (MDRD) > 60.0 ml/min Glucose 164 H (74-106) mg/dL Lactic Acid (0.4-2.0) mmol/L Calcium 7.9 L (8.5-10.1) mg/dL Total Bilirubin 0.5 (0.2-1.0) mg/dL AST 31 (15-37) IU/L ALT 33 (14-63) IU/L Alkaline Phosphatase 57 (46-116) U/L Troponin I (0.000-0.056) ng/mL C-Reactive Protein (0.00-0.90) mg/dL B-Natriuretic Peptide (<100) PG/ML Total Protein 6.9 (6.4-8.2) g/dL Albumin 2.5 L (3.4-5.0) g/dL Globulin 4.4 H (2.6-4.0) g/dL Albumin/Globulin Ratio 0.6 L (0.9-1.6) Urine Color Urine Appearance Urine pH (5.0-8.0) Ur Specific [place] (1.001-1.035) Urine Protein (NEGATIVE) mg/dL Urine Glucose (UA) (NEGATIVE) mg/dL Urine Ketones (NEGATIVE) mg/dL Urine Occult Blood (NEGATIVE) Urine Nitrite (NEGATIVE) Urine Bilirubin (NEGATIVE) Urine Urobilinogen (<2.0) EU/dL Ur Leukocyte Esterase (NEGATIVE) Urine RBC (0-2/HPF) Urine WBC (0-5/HPF) Ur Epithelial Cells (NONE-FEW) Urine Bacteria (NEGATIVE) Result Diagrams: 07/18/21 06:28 07/18/21 06:28 Sepsis Event Note - Evaluation Sepsis Screening Result: No Definite Risk - Focused Exam Vital Signs: Vital Signs Temp Pulse Resp BP Pulse Ox 07/18/21 04:00 96.8 F L 74 19 147/88 H 94 L 07/18/21 00:00 97.2 F 89 18 137/90 91 L - Problem List & Annotations (1) COVID SNOMED Code(s): 224102414 Code(s): U07.1 - COVID-19 Status: Acute Current Visit: Yes (2) Hypoxia SNOMED Code(s): 637155653 Code(s): R09.02 - HYPOXEMIA Status: Acute Current Visit: Yes - Problem List Review Problem List Initiated/Reviewed/Updated: Yes - Assessment Assessment:: 1. Acute respiratory failure secondary to COVID-19 pneumonia -The patient is currently on CPAP, flow rate of 8, FiO2 of 50, respiratory rate of 19, and is saturating at 94%, will continue to supply oxygen as needed and wean as needed -We will continue with dexamethasone 6 mg per oral route once a day -We will continue with baricitinib 4 mg per oral route once a day -We will continue with remdesivir 100 mg per IV route -Continue with Tessalon Perles and other symptomatic relief treatments -Continue with Combivent for shortness of breath -Incentive spirometry has been encouraged -Daily CBC/CMP to monitor patient
[2021-07-18] MEDS: Dexamethasone 4 MG Tab PO SCH (14:45)
[2021-07-18] MEDS: Benzonatate 100 MG Cap PO PRN ×2 (14:45→22:21)
[2021-07-18] MEDS: REMDESIVIR 100 MG in Sodium Chloride 0.9% 100 ML IV SCH (14:45)
[2021-07-19] MEDS: Enoxaparin 40 MG/0.4 ML Syringe SUBCUT SCH ×2 (06:22→17:59)
[2021-07-19 07:29] LABS: BLOOD UREA NITROGEN,BUN 18 mg/dL (7.0-18.0); CHLORIDE,CL 103 mmol/L (98-107); GLUCOSE RANDOM 146 mg/dL (74-106); POTASSIUM,K 4.3 mmol/L (3.5-5.1); SODIUM,NA 140 mmol/L (136-148)
[2021-07-19] MEDS: REMDESIVIR 100 MG in Sodium Chloride 0.9% 100 ML IV SCH (13:25)
[2021-07-19] MEDS: Dexamethasone 4 MG Tab PO SCH (13:25)
--- NOTE | 2021-07-19 15:26 | PCM.PN ---
- General Info Date of Service: 07/19/21 Subjective Update: The patient is a 55-year-old obese male, on day 3 of service, with a significant past medical history of obesity with a BMI over 45 and arthritis, who was admitted to the medical floor due to infection with COVID-19 pneumonia. He is currently on high flow via nasal cannula, 7 L of oxygen, and is saturating at 94%. On interview with the patient today he admits that his shortness of breath has significantly improved since admission and that his cough has almost completely resolved to the point where he is no longer producing sputum. He is urinating without any issues but has not had a solid bowel movement and he attributes this to not eating as much as he is used to. If he does not have a bowel movement by tomorrow morning, we may need to introduce stool softening medication. He denies chest pain, palpitations, abdominal pain, fever, loss of taste or smell. He has no other health concerns at this time. - Review of Systems General: Denies: Fever HEENT: Denies: Headaches, Sore Throat Pulmonary: Reports: Shortness of Breath, Cough. Denies: Pleuritic Chest Pain Cardiovascular: Denies: Chest Pain, Palpitations Gastrointestinal: Reports: Constipation. Denies: Abdominal Pain, Diarrhea, Nausea, Vomiting Genitourinary: Denies: Dysuria - Patient Data Vitals - Most Recent: Last Vital Signs Temp 97.0 F 07/19/21 11:26 Pulse 71 07/19/21 11:26 Resp 18 07/19/21 11:26 BP 139/83 07/19/21 11:26 Pulse Ox 89 L 07/19/21 11:26 Weight - Most Recent: 344 lb 12.847 oz I&O - Last 24 Hours: Intake & Output 07/19/21 07/19/21 07/19/21 06:59 14:59 22:59 Intake Total 2350 Output Total 800 Balance 1550 Lab Results Last 24 Hours: Laboratory Results - last 24 hr 07/19/21 07/19/21 Range/Units 05:51 05:51 WBC 7.63 (4.0-11.0) K/uL RBC 5.22 (4.50-5.90) M/uL Hgb 14.4 (13.0-17.0) g/dL Hct 44.3 (38.0-50.0) % MCV 84.9 (80.0-98.0) fL MCH 27.6 (27.0-32.0) pg MCHC 32.5 (31.0-37.0) g/dL RDW Std Deviation 48.3 (28.0-62.0) fl RDW Coeff of Mary Anne 16 H (11.0-15.0) % Plt Count 181 (150-400) K/uL MPV 11.10 (7.40-12.00) fL Add Manual Diff YES Neutrophils % (Manual) 79 (48.0-80.0) % Band Neutrophils % 2 % Lymphocytes % (Manual) 11 L (16.0-40.0) % Monocytes % (Manual) 8 (0.0-15.0) % Nucleated RBC % 0.0 /100WBC Absolute Seg Neuts 6.0 H (1.4-5.7) Band Neutrophils # 0.2 Lymphocytes # (Manual) 0.8 (0.6-2.4) Monocytes # (Manual) 0.6 (0.0-0.8) Nucleated RBCs # 0 K/uL Sodium 140 (136-148) mmol/L Potassium 4.3 (3.5-5.1) mmol/L Chloride 103 (98-107) mmol/L Carbon Dioxide 28.0 (21.0-32.0) mmol/L BUN 18 (7.0-18.0) mg/dL Creatinine 0.8 (0.8-1.3) mg/dL Est Cr Clr Drug Dosing 114.51 mL/min Estimated GFR (MDRD) > 60.0 ml/min Glucose 146 H (74-106) mg/dL Calcium 8.6 (8.5-10.1) mg/dL Total Bilirubin 0.4 (0.2-1.0) mg/dL AST 25 (15-37) IU/L ALT 32 (14-63) IU/L Alkaline Phosphatase 49 (46-116) U/L Total Protein 6.5 (6.4-8.2) g/dL Albumin 2.3 L (3.4-5.0) g/dL Globulin 4.2 H (2.6-4.0) g/dL Albumin/Globulin Ratio 0.6 L (0.9-1.6) Juve Results Last 24 Hours: Microbiology 07/17/21 14:35 Aerobic Blood Culture - Preliminary Blood - Venous - Lab Draw NO GROWTH AFTER 2 DAYS Anaerobic Blood Culture - Preliminary NO GROWTH AFTER 2 DAYS 07/17/21 14:20 Aerobic Blood Culture - Preliminary Blood - Venous NO GROWTH AFTER 2 DAYS Anaerobic Blood Culture - Preliminary NO GROWTH AFTER 2 DAYS Med Orders - Current: Current Medications Acetaminophen (Acetaminophen 325 Mg Tab) 650 mg PO Q4H PRN PRN Reason: Pain (Mild 1-3)/fever Albuterol/Ipratropium (Albuterol/Ipratropium 4 Gm Inhalation [place]) 0 gm INH QID PRN PRN Reason: wheezing Baricitinib (Baricitinib 2 Mg Tab) 4 mg PO Q24H [facility] Last Admin: 07/18/21 22:21 Dose: 4 mg Documented by: Benzonatate (Benzonatate 100 Mg Cap) 100 mg PO Q6H PRN PRN Reason: Cough Last Admin: 07/18/21 22:21 Dose: 100 mg Documented by: Dexamethasone (Dexamethasone 4 Mg Tab) 6 mg PO Q24H [facility] Last Admin: 07/19/21 13:25 Dose: 6 mg Documented by: Enoxaparin Sodium (Enoxaparin 40 Mg/0.4 Ml Syringe) 40 mg SUBCUT Q12H [facility] Last Admin: 07/19/21 06:22 Dose: 40 mg Documented by: Remdesivir 100 mg/ Sodium (Chloride) 100 mls @ 100 mls/hr IV Q24H [facility] Stop: 07/21/21 14:59 Last Admin: 07/19/21 13:25 Dose: 100 mls/hr Documented by: Sodium Chloride (Sodium Chloride 0.9% 10 Ml Syringe) 10 ml FLUSH ASDIRECTED PRN PRN Reason: Keep Vein Open Last Admin: 07/17/21 14:39 Dose: 10 ml Documented by: Sodium Chloride (Sodium Chloride 0.9% 2.5 Ml Syringe) 2.5 ml FLUSH ASDIRECTED PRN PRN Reason: Keep Vein Open Last Admin: 07/17/21 14:39 Dose: 2.5 ml Documented by: Discontinued Medications Albuterol (Albuterol 8 Gm Inhaler) 5 gm INH ONETIME ONE Stop: 07/17/21 14:19 Last Admin: 07/17/21 14:39 Dose: Not Given Documented by: Albuterol (Albuterol 0.083% 2.5 Mg/3 Ml Neb Soln) 5 mg NEB ONETIME ONE Stop: 07/17/21 14:32 Last Admin: 07/17/21 14:34 Dose: 5 mg Documented by: Albuterol (Albuterol 0.083% 2.5 Mg/3 Ml Neb Soln) Confirm Administered Dose 2.5 mg .ROUTE .STK-MED ONE Stop: 07/17/21 14:33 Last Admin: 07/17/21 14:40 Dose: Not Given Documented by: Baricitinib (Baricitinib 2 Mg Tab) 4 mg PO Q24H [facility] Last Admin: 07/17/21 22:51 Dose: Not Given Documented by: Dexamethasone (Dexamethasone 4 Mg/Ml Sdv) 6 mg IVPUSH ONETIME ONE Stop: 07/17/21 14:11 Last Admin: 07/17/21 14:31 Dose: 6 mg Documented by: Enoxaparin Sodium (Enoxaparin 40 Mg/0.4 Ml Syringe) 40 mg SUBCUT Q12HR [facility] Last Admin: 07/17/21 22:52 Dose: Not Given Documented by: Remdesivir 200 mg/ Sodium (Chloride) 250 mls @ 250 mls/hr IV ONETIME ONE Stop: 07/17/21 14:11 Last Admin: 07/17/21 15:17 Dose: 250 mls/hr Documented by: Remdesivir 200 mg/ Sodium (Chloride) 250 mls @ 250 mls/hr IV ONETIME ONE Stop: 07/17/21 15:29 Last Admin: 07/17/21 17:07 Dose: Not Given Documented by: Iopamidol (Iopamidol 755 Mg/Ml 500 Ml Multipack Bottle) 100 ml IVPUSH ONETIME STA Stop: 07/17/21 17:57 Last Admin: 07/17/21 17:56 Dose: 100 ml Documented by: - Exam General: Alert, Oriented, Cooperative HEENT: Mucous Membr. Moist/[place] Neck: Trachea Midline Lungs: Wheezing Cardiovascular: Regular Rate, Regular Rhythm, No Murmurs GI/Abdominal Exam: Normal Bowel Sounds, Soft, Non-Tender, No Organomegaly - Patient Data Lab Results Last 24 hrs: Laboratory Results - last 24 hr 07/19/21 07/19/21 Range/Units 05:51 05:51 WBC 7.63 (4.0-11.0) K/uL RBC 5.22 (4.50-5.90) M/uL Hgb 14.4 (13.0-17.0) g/dL Hct 44.3 (38.0-50.0) % MCV 84.9 (80.0-98.0) fL MCH 27.6 (27.0-32.0) pg MCHC 32.5 (31.0-37.0) g/dL RDW Std Deviation 48.3 (28.0-62.0) fl RDW Coeff of Mary Anne 16 H (11.0-15.0) % Plt Count 181 (150-400) K/uL MPV 11.10 (7.40-12.00) fL Add Manual Diff YES Neutrophils % (Manual) 79 (48.0-80.0) % Band Neutrophils % 2 % Lymphocytes % (Manual) 11 L (16.0-40.0) % Monocytes % (Manual) 8 (0.0-15.0) % Nucleated RBC % 0.0 /100WBC Absolute Seg Neuts 6.0 H (1.4-5.7) Band Neutrophils # 0.2 Lymphocytes # (Manual) 0.8 (0.6-2.4) Monocytes # (Manual) 0.6 (0.0-0.8) Nucleated RBCs # 0 K/uL Sodium 140 (136-148) mmol/L Potassium 4.3 (3.5-5.1) mmol/L Chloride 103 (98-107) mmol/L Carbon Dioxide 28.0 (21.0-32.0) mmol/L BUN 18 (7.0-18.0) mg/dL Creatinine 0.8 (0.8-1.3) mg/dL Est Cr Clr Drug Dosing 114.51 mL/min Estimated GFR (MDRD) > 60.0 ml/min Glucose 146 H (74-106) mg/dL Calcium 8.6 (8.5-10.1) mg/dL Total Bilirubin 0.4 (0.2-1.0) mg/dL AST 25 (15-37) IU/L ALT 32 (14-63) IU/L Alkaline Phosphatase 49 (46-116) U/L Total Protein 6.5 (6.4-8.2) g/dL Albumin 2.3 L (3.4-5.0) g/dL Globulin 4.2 H (2.6-4.0) g/dL Albumin/Globulin Ratio 0.6 L (0.9-1.6) Result Diagrams: 07/19/21 05:51 07/19/21 05:51 Juve Results Last 24 hrs: Microbiology 07/17/21 14:35 Aerobic Blood Culture - Preliminary Blood - Venous - Lab Draw NO GROWTH AFTER 2 DAYS Anaerobic Blood Culture - Preliminary NO GROWTH AFTER 2 DAYS 07/17/21 14:20 Aerobic Blood Culture - Preliminary Blood - Venous NO GROWTH AFTER 2 DAYS Anaerobic Blood Culture - Preliminary NO GROWTH AFTER 2 DAYS Sepsis Event Note - Evaluation Sepsis Screening Result: No Definite Risk - Focused Exam Vital Signs: Vital Signs Temp Pulse Resp BP Pulse Ox 07/19/21 11:26 97.0 F 71 18 139/83 89 L 07/19/21 09:40 20 92 L 07/19/21 08:24 96.6 F L 66 20 136/90 90 L 07/19/21 06:21 134/86 07/19/21 04:14 96.3 F L 69 18 139/92 H 94 L - Problem List & Annotations (1) COVID SNOMED Code(s): 034599312 Code(s): U07.1 - COVID-19 Status: Acute Current Visit: Yes (2) Hypoxia SNOMED Code(s): 468735191 Code(s): R09.02 - HYPOXEMIA Status: Acute Current Visit: Yes - Problem List Review Problem List Initiated/Reviewed/Updated: Yes - Assessment Assessment:: 1. Acute respiratory failure secondary to COVID-19 pneumonia -The patient is currently on high flow via nasal cannula, 7 L of oxygen, and saturating at 94%, will continue to wean as needed -We will continue with dexamethasone 6 mg per oral route once a day -We will continue with baricitinib 4 mg per oral route once a day -We will continue with remdesivir 100 mg per IV route -Continue with Tessalon Perles and other symptomatic relief treatments -Continue with Combivent for shortness of breath -Incentive spirometry has been encouraged -Daily CBC/CMP to monitor patient
[2021-07-19] MEDS ORDERED: Simethicone 80 MG Tab.Chew PO PRN (22:28)
[2021-07-20] MEDS: Benzonatate 100 MG Cap PO PRN (04:24)
[2021-07-20] MEDS: Enoxaparin 40 MG/0.4 ML Syringe SUBCUT SCH ×2 (06:23→18:15)
[2021-07-20 08:16] LABS: BLOOD UREA NITROGEN,BUN 19 mg/dL (7.0-18.0); CARBON DIOXIDE,CO2 29.7 mmol/L (21.0-32.0); CHLORIDE,CL 103 mmol/L (98-107); GLUCOSE RANDOM 117 mg/dL (74-106); POTASSIUM,K 4.9 mmol/L (3.5-5.1); SODIUM,NA 140 mmol/L (136-148)
[2021-07-20] MEDS: guaiFENesin 100 MG/5 ML Soln 5 ML UD Cup PO PRN ×4 (09:36→22:51)
--- NOTE | 2021-07-20 13:44 | PCM.PN ---
- General Info Date of Service: 07/20/21 Subjective Update: The patient is a 55-year-old obese male, on day 4 of service, with a significant past medical history of obesity with a BMI over 45 and arthritis, who was admitted to the medical floor due to infection with COVID-19 pneumonia. He is currently on high flow via nasal cannula, 3.5 L of oxygen, and is saturating at 94%. On interview with the patient today he admits that his shortness of breath has significantly reduced and that he only feels minimal discomfort upon exertion and when ambulating around his room when using the washroom. He does admit to coughing spells throughout the night productive of white sputum, and he would like some medication to help him stop. He is eating and drinking without any issues, and had 2 large bowel movements during the night. He has no issues with urination, and denies chest pain, palpitations, loss of taste or smell, or fever. He has no other health concerns at this time. - Review of Systems General: Denies: Fever, Fatigue HEENT: Denies: Headaches, Sore Throat Pulmonary: Reports: Shortness of Breath, Cough Cardiovascular: Denies: Chest Pain, Palpitations Gastrointestinal: Denies: Abdominal Pain Genitourinary: Denies: Dysuria - Patient Data Vitals - Most Recent: Last Vital Signs Temp 98.2 F 07/20/21 09:31 Pulse 61 07/20/21 09:31 Resp 16 07/20/21 09:31 BP 126/93 H 07/20/21 09:31 Pulse Ox 91 L 07/20/21 09:31 Weight - Most Recent: 344 lb 12.847 oz I&O - Last 24 Hours: Intake & Output 07/19/21 07/20/21 07/20/21 22:59 06:59 14:59 Intake Total 1300 1450 Output Total 800 865 Balance 500 585 Lab Results Last 24 Hours: Laboratory Results - last 24 hr 07/20/21 07/20/21 Range/Units 06:50 06:50 WBC 8.17 (4.0-11.0) K/uL RBC 5.23 (4.50-5.90) M/uL Hgb 14.6 (13.0-17.0) g/dL Hct 44.7 (38.0-50.0) % MCV 85.5 (80.0-98.0) fL MCH 27.9 (27.0-32.0) pg MCHC 32.7 (31.0-37.0) g/dL RDW Std Deviation 48.8 (28.0-62.0) fl RDW Coeff of Mary Anne 16 H (11.0-15.0) % Plt Count 273 (150-400) K/uL MPV 10.30 (7.40-12.00) fL Add Manual Diff YES Neutrophils % (Manual) 69 (48.0-80.0) % Band Neutrophils % 4 % Lymphocytes % (Manual) 24 (16.0-40.0) % Monocytes % (Manual) 3 (0.0-15.0) % Nucleated RBC % 0.0 /100WBC Absolute Seg Neuts 5.6 (1.4-5.7) Band Neutrophils # 0.3 Lymphocytes # (Manual) 2.0 (0.6-2.4) Monocytes # (Manual) 0.2 (0.0-0.8) Nucleated RBCs # 0 K/uL Sodium 140 (136-148) mmol/L Potassium 4.9 (3.5-5.1) mmol/L Chloride 103 (98-107) mmol/L Carbon Dioxide 29.7 (21.0-32.0) mmol/L BUN 19 H (7.0-18.0) mg/dL Creatinine 0.7 L (0.8-1.3) mg/dL Est Cr Clr Drug Dosing 130.87 mL/min Estimated GFR (MDRD) > 60.0 ml/min Glucose 117 H (74-106) mg/dL Calcium 7.9 L (8.5-10.1) mg/dL Total Bilirubin 0.3 (0.2-1.0) mg/dL AST 25 (15-37) IU/L ALT 31 (14-63) IU/L Alkaline Phosphatase 52 (46-116) U/L Total Protein 6.0 L (6.4-8.2) g/dL Albumin 2.5 L (3.4-5.0) g/dL Globulin 3.5 (2.6-4.0) g/dL Albumin/Globulin Ratio 0.7 L (0.9-1.6) Juve Results Last 24 Hours: Microbiology 07/17/21 14:35 Aerobic Blood Culture - Preliminary Blood - Venous - Lab Draw NO GROWTH AFTER 2 DAYS Anaerobic Blood Culture - Preliminary NO GROWTH AFTER 2 DAYS 07/17/21 14:20 Aerobic Blood Culture - Preliminary Blood - Venous NO GROWTH AFTER 2 DAYS Anaerobic Blood Culture - Preliminary NO GROWTH AFTER 2 DAYS Med Orders - Current: Current Medications Acetaminophen (Acetaminophen 325 Mg Tab) 650 mg PO Q4H PRN PRN Reason: Pain (Mild 1-3)/fever Albuterol/Ipratropium (Albuterol/Ipratropium 4 Gm Inhalation [place]) 0 gm INH QID PRN PRN Reason: wheezing Baricitinib (Baricitinib 2 Mg Tab) 4 mg PO Q24H [facility] Last Admin: 07/19/21 21:56 Dose: 4 mg Documented by: Benzonatate (Benzonatate 100 Mg Cap) 100 mg PO Q6H PRN PRN Reason: Cough Last Admin: 07/20/21 04:24 Dose: 100 mg Documented by: Dexamethasone (Dexamethasone 4 Mg Tab) 6 mg PO Q24H [facility] Last Admin: 07/19/21 13:25 Dose: 6 mg Documented by: Enoxaparin Sodium (Enoxaparin 40 Mg/0.4 Ml Syringe) 40 mg SUBCUT Q12H [facility] Last Admin: 07/20/21 06:23 Dose: 40 mg Documented by: Guaifenesin (Guaifenesin 100 Mg/5 Ml Soln 5 Ml Ud Cup) 200 mg PO Q4H PRN PRN Reason: cough Last Admin: 07/20/21 09:36 Dose: 200 mg Documented by: Remdesivir 100 mg/ Sodium (Chloride) 100 mls @ 100 mls/hr IV Q24H [facility] Stop: 07/21/21 14:59 Last Admin: 07/19/21 13:25 Dose: 100 mls/hr Documented by: Simethicone (Simethicone 80 Mg Tab.Chew) 80 mg PO TIDAC PRN PRN Reason: Gas Last Admin: 07/19/21 23:26 Dose: 80 mg Documented by: Sodium Chloride (Sodium Chloride 0.9% 10 Ml Syringe) 10 ml FLUSH ASDIRECTED PRN PRN Reason: Keep Vein Open Last Admin: 07/17/21 14:39 Dose: 10 ml Documented by: Sodium Chloride (Sodium Chloride 0.9% 2.5 Ml Syringe) 2.5 ml FLUSH ASDIRECTED PRN PRN Reason: Keep Vein Open Last Admin: 07/17/21 14:39 Dose: 2.5 ml Documented by: Discontinued Medications Albuterol (Albuterol 8 Gm Inhaler) 5 gm INH ONETIME ONE Stop: 07/17/21 14:19 Last Admin: 07/17/21 14:39 Dose: Not Given Documented by: Albuterol (Albuterol 0.083% 2.5 Mg/3 Ml Neb Soln) 5 mg NEB ONETIME ONE Stop: 07/17/21 14:32 Last Admin: 07/17/21 14:34 Dose: 5 mg Documented by: Albuterol (Albuterol 0.083% 2.5 Mg/3 Ml Neb Soln) Confirm Administered Dose 2.5 mg .ROUTE .STK-MED ONE Stop: 07/17/21 14:33 Last Admin: 07/17/21 14:40 Dose: Not Given Documented by: Baricitinib (Baricitinib 2 Mg Tab) 4 mg PO Q24H [facility] Last Admin: 07/17/21 22:51 Dose: Not Given Documented by: Dexamethasone (Dexamethasone 4 Mg/Ml Sdv) 6 mg IVPUSH ONETIME ONE Stop: 07/17/21 14:11 Last Admin: 07/17/21 14:31 Dose: 6 mg Documented by: Enoxaparin Sodium (Enoxaparin 40 Mg/0.4 Ml Syringe) 40 mg SUBCUT Q12HR [facility] Last Admin: 07/17/21 22:52 Dose: Not Given Documented by: Remdesivir 200 mg/ Sodium (Chloride) 250 mls @ 250 mls/hr IV ONETIME ONE Stop: 07/17/21 14:11 Last Admin: 07/17/21 15:17 Dose: 250 mls/hr Documented by: Remdesivir 200 mg/ Sodium (Chloride) 250 mls @ 250 mls/hr IV ONETIME ONE Stop: 07/17/21 15:29 Last Admin: 07/17/21 17:07 Dose: Not Given Documented by: Iopamidol (Iopamidol 755 Mg/Ml 500 Ml Multipack Bottle) 100 ml IVPUSH ONETIME STA Stop: 07/17/21 17:57 Last Admin: 07/17/21 17:56 Dose: 100 ml Documented by: - Exam General: Alert, Oriented, Cooperative HEENT: Mucous Membr. Moist/[place] Neck: Trachea Midline Lungs: Wheezing Cardiovascular: Regular Rate, Regular Rhythm GI/Abdominal Exam: Normal Bowel Sounds, Soft, Non-Tender - Patient Data Lab Results Last 24 hrs: Laboratory Results - last 24 hr 07/20/21 07/20/21 Range/Units 06:50 06:50 WBC 8.17 (4.0-11.0) K/uL RBC 5.23 (4.50-5.90) M/uL Hgb 14.6 (13.0-17.0) g/dL Hct 44.7 (38.0-50.0) % MCV 85.5 (80.0-98.0) fL MCH 27.9 (27.0-32.0) pg MCHC 32.7 (31.0-37.0) g/dL RDW Std Deviation 48.8 (28.0-62.0) fl RDW Coeff of Mary Anne 16 H (11.0-15.0) % Plt Count 273 (150-400) K/uL MPV 10.30 (7.40-12.00) fL Add Manual Diff YES Neutrophils % (Manual) 69 (48.0-80.0) % Band Neutrophils % 4 % Lymphocytes % (Manual) 24 (16.0-40.0) % Monocytes % (Manual) 3 (0.0-15.0) % Nucleated RBC % 0.0 /100WBC Absolute Seg Neuts 5.6 (1.4-5.7) Band Neutrophils # 0.3 Lymphocytes # (Manual) 2.0 (0.6-2.4) Monocytes # (Manual) 0.2 (0.0-0.8) Nucleated RBCs # 0 K/uL Sodium 140 (136-148) mmol/L Potassium 4.9 (3.5-5.1) mmol/L Chloride 103 (98-107) mmol/L Carbon Dioxide 29.7 (21.0-32.0) mmol/L BUN 19 H (7.0-18.0) mg/dL Creatinine 0.7 L (0.8-1.3) mg/dL Est Cr Clr Drug Dosing 130.87 mL/min Estimated GFR (MDRD) > 60.0 ml/min Glucose 117 H (74-106) mg/dL Calcium 7.9 L (8.5-10.1) mg/dL Total Bilirubin 0.3 (0.2-1.0) mg/dL AST 25 (15-37) IU/L ALT 31 (14-63) IU/L Alkaline Phosphatase 52 (46-116) U/L Total Protein 6.0 L (6.4-8.2) g/dL Albumin 2.5 L (3.4-5.0) g/dL Globulin 3.5 (2.6-4.0) g/dL Albumin/Globulin Ratio 0.7 L (0.9-1.6) Result Diagrams: 07/20/21 06:50 07/20/21 06:50 Juve Results Last 24 hrs: Microbiology 07/17/21 14:35 Aerobic Blood Culture - Preliminary Blood - Venous - Lab Draw NO GROWTH AFTER 2 DAYS Anaerobic Blood Culture - Preliminary NO GROWTH AFTER 2 DAYS 07/17/21 14:20 Aerobic Blood Culture - Preliminary Blood - Venous NO GROWTH AFTER 2 DAYS Anaerobic Blood Culture - Preliminary NO GROWTH AFTER 2 DAYS Sepsis Event Note - Evaluation Sepsis Screening Result: No Definite Risk - Focused Exam Vital Signs: Vital Signs Temp Pulse Resp BP BP Pulse Ox 07/20/21 09:31 98.2 F 61 16 126/93 H 91 L 07/20/21 06:21 18 94 L 07/20/21 03:56 96.8 F L 66 18 150/84 H 92 L - Problem List & Annotations (1) COVID SNOMED Code(s): 280310774 Code(s): U07.1 - COVID-19 Status: Acute Current Visit: Yes (2) Hypoxia SNOMED Code(s): 909849427 Code(s): R09.02 - HYPOXEMIA Status: Acute Current Visit: Yes - Problem List Review Problem List Initiated/Reviewed/Updated: Yes - My Orders Last 24 Hours: My Active Orders 07/20/21 09:30 guaiFENesin [Robitussin] 200 mg PO Q4H PRN - Assessment Assessment:: 1. Acute respiratory failure secondary to COVID-19 pneumonia -The patient is currently on nasal cannula, 3.5 L of oxygen, and saturating at 94%, will continue to wean as needed -We will continue with dexamethasone 6 mg per oral route once a day -We will continue with baricitinib 4 mg per oral route once a day -We will continue with remdesivir 100 mg per IV route -Continue with Tessalon Perles and Robitussin for cough and congestion -Continue with Combivent for shortness of breath -Incentive spirometry has been encouraged -Daily CBC/CMP to monitor patient
[2021-07-20] MEDS: REMDESIVIR 100 MG in Sodium Chloride 0.9% 100 ML IV SCH (13:54)
[2021-07-20] MEDS: Dexamethasone 4 MG Tab PO SCH (13:54)
[2021-07-21] MEDS: guaiFENesin 100 MG/5 ML Soln 5 ML UD Cup PO PRN ×5 (03:58→22:52)
[2021-07-21] MEDS: Enoxaparin 40 MG/0.4 ML Syringe SUBCUT SCH ×2 (06:31→18:45)
[2021-07-21] MEDS: Benzonatate 100 MG Cap PO PRN ×2 (06:43→14:44)
[2021-07-21 07:47] LABS: BLOOD UREA NITROGEN,BUN 16 mg/dL (7.0-18.0); CHLORIDE,CL 102 mmol/L (98-107); GLUCOSE RANDOM 126 mg/dL (74-106); SODIUM,NA 138 mmol/L (136-148)
--- NOTE | 2021-07-21 10:16 | PCM.PN ---
- General Info Date of Service: 07/21/21 - Review of Systems Systems Review Comment:: feeling better, reports cough, shortness of breath has improved - Patient Data Vitals - Most Recent: Last Vital Signs Temp 2.2 C L 07/21/21 08:00 Pulse 62 07/21/21 08:00 Resp 19 07/21/21 08:00 BP 132/85 07/21/21 08:00 Pulse Ox 93 L 07/21/21 08:00 Weight - Most Recent: 156.4 kg I&O - Last 24 Hours: Intake & Output 07/20/21 07/21/21 07/21/21 22:59 06:59 14:59 Intake Total 1340 1000 Output Total 1450 1050 Balance -110 -50 Lab Results Last 24 Hours: Laboratory Results - last 24 hr 07/21/21 07/21/21 Range/Units 06:44 06:44 WBC 8.92 (4.0-11.0) K/uL RBC 5.29 (4.50-5.90) M/uL Hgb 14.5 (13.0-17.0) g/dL Hct 45.0 (38.0-50.0) % MCV 85.1 (80.0-98.0) fL MCH 27.4 (27.0-32.0) pg MCHC 32.2 (31.0-37.0) g/dL RDW Std Deviation 47.6 (28.0-62.0) fl RDW Coeff of Mary Anne 15 (11.0-15.0) % Plt Count 234 (150-400) K/uL MPV 10.60 (7.40-12.00) fL Neut % (Auto) 77.6 (48.0-80.0) % Lymph % (Auto) 11.7 L (16.0-40.0) % Lucas % (Auto) 10.3 (0.0-15.0) % Eos % (Auto) 0.3 (0.0-7.0) % Baso % (Auto) 0.1 (0.0-1.5) % Neut # (Auto) 6.9 H (1.4-5.7) K/uL Lymph # (Auto) 1.0 (0.6-2.4) K/uL Lucas # (Auto) 0.9 H (0.0-0.8) K/uL Eos # (Auto) 0.0 (0.0-0.7) K/uL Baso # (Auto) 0.0 (0.0-0.1) K/uL Nucleated RBC % 0.0 /100WBC Nucleated RBCs # 0 K/uL Sodium 138 (136-148) mmol/L Potassium 5.0 (3.5-5.1) mmol/L Chloride 102 (98-107) mmol/L Carbon Dioxide 28.0 (21.0-32.0) mmol/L BUN 16 (7.0-18.0) mg/dL Creatinine 0.6 L (0.8-1.3) mg/dL Est Cr Clr Drug Dosing 152.69 mL/min Estimated GFR (MDRD) > 60.0 ml/min Glucose 126 H (74-106) mg/dL Calcium 8.0 L (8.5-10.1) mg/dL Total Bilirubin 0.4 (0.2-1.0) mg/dL AST 29 (15-37) IU/L ALT 45 (14-63) IU/L Alkaline Phosphatase 54 (46-116) U/L Total Protein 6.0 L (6.4-8.2) g/dL Albumin 2.6 L (3.4-5.0) g/dL Globulin 3.4 (2.6-4.0) g/dL Albumin/Globulin Ratio 0.8 L (0.9-1.6) Juve Results Last 24 Hours: Microbiology 07/17/21 14:35 Aerobic Blood Culture - Preliminary Blood - Venous - Lab Draw NO GROWTH AFTER 3 DAYS Anaerobic Blood Culture - Preliminary NO GROWTH AFTER 3 DAYS 07/17/21 14:20 Aerobic Blood Culture - Preliminary Blood - Venous NO GROWTH AFTER 3 DAYS Anaerobic Blood Culture - Preliminary NO GROWTH AFTER 3 DAYS Med Orders - Current: Current Medications Acetaminophen (Acetaminophen 325 Mg Tab) 650 mg PO Q4H PRN PRN Reason: Pain (Mild 1-3)/fever Albuterol/Ipratropium (Albuterol/Ipratropium 4 Gm Inhalation [place]) 0 gm INH QID PRN PRN Reason: wheezing Baricitinib (Baricitinib 2 Mg Tab) 4 mg PO Q24H [facility] Last Admin: 07/20/21 22:51 Dose: 4 mg Documented by: Benzonatate (Benzonatate 100 Mg Cap) 100 mg PO Q6H PRN PRN Reason: Cough Last Admin: 07/21/21 06:43 Dose: 100 mg Documented by: Dexamethasone (Dexamethasone 4 Mg Tab) 6 mg PO Q24H [facility] Last Admin: 07/20/21 13:54 Dose: 6 mg Documented by: Enoxaparin Sodium (Enoxaparin 40 Mg/0.4 Ml Syringe) 40 mg SUBCUT Q12H [facility] Last Admin: 07/21/21 06:31 Dose: 40 mg Documented by: Guaifenesin (Guaifenesin 100 Mg/5 Ml Soln 5 Ml Ud Cup) 200 mg PO Q4H PRN PRN Reason: cough Last Admin: 07/21/21 09:06 Dose: 200 mg Documented by: Remdesivir 100 mg/ Sodium (Chloride) 100 mls @ 100 mls/hr IV Q24H [facility] Stop: 07/21/21 14:59 Last Admin: 07/20/21 13:54 Dose: 100 mls/hr Documented by: Simethicone (Simethicone 80 Mg Tab.Chew) 80 mg PO TIDAC PRN PRN Reason: Gas Last Admin: 07/19/21 23:26 Dose: 80 mg Documented by: Sodium Chloride (Sodium Chloride 0.9% 10 Ml Syringe) 10 ml FLUSH ASDIRECTED PRN PRN Reason: Keep Vein Open Last Admin: 07/17/21 14:39 Dose: 10 ml Documented by: Sodium Chloride (Sodium Chloride 0.9% 2.5 Ml Syringe) 2.5 ml FLUSH ASDIRECTED PRN PRN Reason: Keep Vein Open Last Admin: 07/17/21 14:39 Dose: 2.5 ml Documented by: Discontinued Medications Albuterol (Albuterol 8 Gm Inhaler) 5 gm INH ONETIME ONE Stop: 07/17/21 14:19 Last Admin: 07/17/21 14:39 Dose: Not Given Documented by: Albuterol (Albuterol 0.083% 2.5 Mg/3 Ml Neb Soln) 5 mg NEB ONETIME ONE Stop: 07/17/21 14:32 Last Admin: 07/17/21 14:34 Dose: 5 mg Documented by: Albuterol (Albuterol 0.083% 2.5 Mg/3 Ml Neb Soln) Confirm Administered Dose 2.5 mg .ROUTE .STK-MED ONE Stop: 07/17/21 14:33 Last Admin: 07/17/21 14:40 Dose: Not Given Documented by: Baricitinib (Baricitinib 2 Mg Tab) 4 mg PO Q24H [facility] Last Admin: 07/17/21 22:51 Dose: Not Given Documented by: Dexamethasone (Dexamethasone 4 Mg/Ml Sdv) 6 mg IVPUSH ONETIME ONE Stop: 07/17/21 14:11 Last Admin: 07/17/21 14:31 Dose: 6 mg Documented by: Enoxaparin Sodium (Enoxaparin 40 Mg/0.4 Ml Syringe) 40 mg SUBCUT Q12HR [facility] Last Admin: 07/17/21 22:52 Dose: Not Given Documented by: Remdesivir 200 mg/ Sodium (Chloride) 250 mls @ 250 mls/hr IV ONETIME ONE Stop: 07/17/21 14:11 Last Admin: 07/17/21 15:17 Dose: 250 mls/hr Documented by: Remdesivir 200 mg/ Sodium (Chloride) 250 mls @ 250 mls/hr IV ONETIME ONE Stop: 07/17/21 15:29 Last Admin: 07/17/21 17:07 Dose: Not Given Documented by: Iopamidol (Iopamidol 755 Mg/Ml 500 Ml Multipack Bottle) 100 ml IVPUSH ONETIME STA Stop: 07/17/21 17:57 Last Admin: 07/17/21 17:56 Dose: 100 ml Documented by: - Exam General: Alert, Oriented Neck: Supple Lungs: Clear to Auscultation, Normal Respiratory Effort Cardiovascular: Regular Rate, Regular Rhythm GI/Abdominal Exam: Normal Bowel Sounds, Soft, Non-Tender Extremities: Non-Tender, No Pedal Edema Skin: Warm, Dry, Intact Neurological: No New Focal Deficit - Patient Data Lab Results Last 24 hrs: Laboratory Results - last 24 hr 07/21/21 07/21/21 Range/Units 06:44 06:44 WBC 8.92 (4.0-11.0) K/uL RBC 5.29 (4.50-5.90) M/uL Hgb 14.5 (13.0-17.0) g/dL Hct 45.0 (38.0-50.0) % MCV 85.1 (80.0-98.0) fL MCH 27.4 (27.0-32.0) pg MCHC 32.2 (31.0-37.0) g/dL RDW Std Deviation 47.6 (28.0-62.0) fl RDW Coeff of Mary Anne 15 (11.0-15.0) % Plt Count 234 (150-400) K/uL MPV 10.60 (7.40-12.00) fL Neut % (Auto) 77.6 (48.0-80.0) % Lymph % (Auto) 11.7 L (16.0-40.0) % Lucas % (Auto) 10.3 (0.0-15.0) % Eos % (Auto) 0.3 (0.0-7.0) % Baso % (Auto) 0.1 (0.0-1.5) % Neut # (Auto) 6.9 H (1.4-5.7) K/uL Lymph # (Auto) 1.0 (0.6-2.4) K/uL Lucas # (Auto) 0.9 H (0.0-0.8) K/uL Eos # (Auto) 0.0 (0.0-0.7) K/uL Baso # (Auto) 0.0 (0.0-0.1) K/uL Nucleated RBC % 0.0 /100WBC Nucleated RBCs # 0 K/uL Sodium 138 (136-148) mmol/L Potassium 5.0 (3.5-5.1) mmol/L Chloride 102 (98-107) mmol/L Carbon Dioxide 28.0 (21.0-32.0) mmol/L BUN 16 (7.0-18.0) mg/dL Creatinine 0.6 L (0.8-1.3) mg/dL Est Cr Clr Drug Dosing 152.69 mL/min Estimated GFR (MDRD) > 60.0 ml/min Glucose 126 H (74-106) mg/dL Calcium 8.0 L (8.5-10.1) mg/dL Total Bilirubin 0.4 (0.2-1.0) mg/dL AST 29 (15-37) IU/L ALT 45 (14-63) IU/L Alkaline Phosphatase 54 (46-116) U/L Total Protein 6.0 L (6.4-8.2) g/dL Albumin 2.6 L (3.4-5.0) g/dL Globulin 3.4 (2.6-4.0) g/dL Albumin/Globulin Ratio 0.8 L (0.9-1.6) Result Diagrams: 07/21/21 06:44 07/21/21 06:44 Juve Results Last 24 hrs: Microbiology 07/17/21 14:35 Aerobic Blood Culture - Preliminary Blood - Venous - Lab Draw NO GROWTH AFTER 3 DAYS Anaerobic Blood Culture - Preliminary NO GROWTH AFTER 3 DAYS 07/17/21 14:20 Aerobic Blood Culture - Preliminary Blood - Venous NO GROWTH AFTER 3 DAYS Anaerobic Blood Culture - Preliminary NO GROWTH AFTER 3 DAYS Sepsis Event Note - Evaluation Sepsis Screening Result: No Definite Risk - Focused Exam Vital Signs: Vital Signs Temp Pulse Resp BP Pulse Ox 07/21/21 08:00 2.2 C L 62 19 132/85 93 L 07/21/21 06:31 76 19 91 L 07/21/21 03:57 36.1 C 62 20 147/96 H 92 L 07/20/21 22:49 36.4 C 61 20 92 L - Problem List & Annotations (1) COVID SNOMED Code(s): 753459508 Code(s): U07.1 - COVID-19 Status: Acute Current Visit: Yes (2) Hypoxia SNOMED Code(s): 643190617 Code(s): R09.02 - HYPOXEMIA Status: Acute Current Visit: Yes - Problem List Review Problem List Initiated/Reviewed/Updated: Yes - My Orders Last 24 Hours: My Active Orders 07/22/21 05:11 CBC WITH AUTO DIFF [HEME] AM COMPREHENSIVE METABOLIC PN,CMP [CHEM] AM - Assessment Assessment:: 55 yomale admitted for Acute respiratory failure secondary to COVID-19 pneumonia Hypoxia: on 2 L NC COVID;19 continue dexamethasone, baricitinib, and remdesivir lovenox for DVT prophylaxis - Plan Plan:: .
[2021-07-21] MEDS: Dexamethasone 4 MG Tab PO SCH (13:52)
[2021-07-21] MEDS: REMDESIVIR 100 MG in Sodium Chloride 0.9% 100 ML IV SCH (13:54)
[2021-07-22] MEDS: guaiFENesin 100 MG/5 ML Soln 5 ML UD Cup PO PRN ×2 (03:38→10:32)
[2021-07-22] MEDS: Enoxaparin 40 MG/0.4 ML Syringe SUBCUT SCH (06:27)
[2021-07-22 07:23] LABS: BLOOD UREA NITROGEN,BUN 13 mg/dL (7.0-18.0); CARBON DIOXIDE,CO2 30.2 mmol/L (21.0-32.0); CHLORIDE,CL 101 mmol/L (98-107); GLUCOSE RANDOM 133 mg/dL (74-106); POTASSIUM,K 4.6 mmol/L (3.5-5.1); SODIUM,NA 138 mmol/L (136-148)
[2021-07-22 08:07] VITALS: PULSE 64
[2021-07-22] MEDS ORDERED: Labetalol 100 MG/20 ML MDV IVPUSH ONE (09:33)
[2021-07-22 10:05] VITALS: BP 130/94
--- NOTE | 2021-07-22 10:33 | PCM.PN ---
- General Info Date of Service: 07/22/21 Subjective Update: The patient is a 55-year-old obese male, with no significant past medical history, who was admitted to the medical floor due to COVID-19 pneumonia. During his hospital course the patient was on a variety of different medications in order to treat his COVID-19 including remdesivir per IV route, dexamethasone per oral route, baricitinib per oral route, Combivent for shortness of breath, Tessalon Perles for congestion, and Robitussin for cough. He was also supplied oxygen and had various fluctuations in his demand, he was on CPAP, high flow nasal cannula, and finally nasal cannula. He will be sent home with a home oxygen apparatus via [employer] in order to be used when needed. He will also be sent home on a 5-day course of dexamethasone 6 mg to be taken daily, as well as Robitussin cough syrup for symptomatic relief. The patient has been advised to return to the hospital if he has increasing respiratory difficulty, shortness of breath, chest pain, and/or palpitations. He has also been educated on being compliant with his medication and taking them at scheduled times. The patient does not have a primary care provider but states that he would obtain one and follow-up with him/her in 1 to 2 weeks time. The patient is now stable and can be safely discharged home. - Patient Data Vitals - Most Recent: Last Vital Signs Temp 98.2 F 07/22/21 08:07 Pulse 64 07/22/21 08:07 Resp 20 07/22/21 08:07 BP 130/94 H 07/22/21 10:05 Pulse Ox 92 L 07/22/21 08:07 Weight - Most Recent: 344 lb 12.847 oz I&O - Last 24 Hours: Intake & Output 07/21/21 07/22/21 07/22/21 22:59 06:59 14:59 Intake Total 1500 2000 Output Total 900 1650 Balance 600 350 Lab Results Last 24 Hours: Laboratory Results - last 24 hr 07/22/21 07/22/21 Range/Units 05:43 05:43 WBC 10.47 (4.0-11.0) K/uL RBC 5.44 (4.50-5.90) M/uL Hgb 14.8 (13.0-17.0) g/dL Hct 46.4 (38.0-50.0) % MCV 85.3 (80.0-98.0) fL MCH 27.2 (27.0-32.0) pg MCHC 31.9 (31.0-37.0) g/dL RDW Std Deviation 47.8 (28.0-62.0) fl RDW Coeff of Mary Anne 15 (11.0-15.0) % Plt Count 279 (150-400) K/uL MPV 10.60 (7.40-12.00) fL Add Manual Diff YES Neutrophils % (Manual) 79 (48.0-80.0) % Band Neutrophils % 1 % Lymphocytes % (Manual) 10 L (16.0-40.0) % Monocytes % (Manual) 5 (0.0-15.0) % Eosinophils % (Manual) 1 (0.0-7.0) % Metamyelocytes % 3 % Myelocytes % 1 % Nucleated RBC % 0.0 /100WBC Absolute Seg Neuts 8.3 H (1.4-5.7) Band Neutrophils # 0.1 Lymphocytes # (Manual) 1.0 (0.6-2.4) Monocytes # (Manual) 0.5 (0.0-0.8) Eosinophils # (Manual) 0.1 (0.0-0.7) Absolute Metamyelocyte 0.3 Absolute Myelocytes 0.1 Nucleated RBCs # 0 K/uL Sodium 138 (136-148) mmol/L Potassium 4.6 (3.5-5.1) mmol/L Chloride 101 (98-107) mmol/L Carbon Dioxide 30.2 (21.0-32.0) mmol/L BUN 13 (7.0-18.0) mg/dL Creatinine 0.7 L (0.8-1.3) mg/dL Est Cr Clr Drug Dosing 130.87 mL/min Estimated GFR (MDRD) > 60.0 ml/min Glucose 133 H (74-106) mg/dL Calcium 7.9 L (8.5-10.1) mg/dL Total Bilirubin 0.4 (0.2-1.0) mg/dL AST 18 (15-37) IU/L ALT 48 (14-63) IU/L Alkaline Phosphatase 53 (46-116) U/L Total Protein 6.4 (6.4-8.2) g/dL Albumin 2.5 L (3.4-5.0) g/dL Globulin 3.9 (2.6-4.0) g/dL Albumin/Globulin Ratio 0.6 L (0.9-1.6) Juve Results Last 24 Hours: Microbiology 07/17/21 14:35 Aerobic Blood Culture - Preliminary Blood - Venous - Lab Draw NO GROWTH AFTER 4 DAYS Anaerobic Blood Culture - Preliminary NO GROWTH AFTER 4 DAYS 07/17/21 14:20 Aerobic Blood Culture - Preliminary Blood - Venous NO GROWTH AFTER 4 DAYS Anaerobic Blood Culture - Preliminary NO GROWTH AFTER 4 DAYS Med Orders - Current: Current Medications Acetaminophen (Acetaminophen 325 Mg Tab) 650 mg PO Q4H PRN PRN Reason: Pain (Mild 1-3)/fever Albuterol/Ipratropium (Albuterol/Ipratropium 4 Gm Inhalation [place]) 0 gm INH QID PRN PRN Reason: wheezing Baricitinib (Baricitinib 2 Mg Tab) 4 mg PO Q24H [facility] Last Admin: 07/21/21 22:52 Dose: 4 mg Documented by: Benzonatate (Benzonatate 100 Mg Cap) 100 mg PO Q6H PRN PRN Reason: Cough Last Admin: 07/21/21 14:44 Dose: 100 mg Documented by: Dexamethasone (Dexamethasone 4 Mg Tab) 6 mg PO Q24H [facility] Last Admin: 07/21/21 13:52 Dose: 6 mg Documented by: Enoxaparin Sodium (Enoxaparin 40 Mg/0.4 Ml Syringe) 40 mg SUBCUT Q12H [facility] Last Admin: 07/22/21 06:27 Dose: 40 mg Documented by: Guaifenesin (Guaifenesin 100 Mg/5 Ml Soln 5 Ml Ud Cup) 200 mg PO Q4H PRN PRN Reason: cough Last Admin: 07/22/21 03:38 Dose: 200 mg Documented by: Simethicone (Simethicone 80 Mg Tab.Chew) 80 mg PO TIDAC PRN PRN Reason: Gas Last Admin: 07/19/21 23:26 Dose: 80 mg Documented by: Sodium Chloride (Sodium Chloride 0.9% 10 Ml Syringe) 10 ml FLUSH ASDIRECTED PRN PRN Reason: Keep Vein Open Last Admin: 07/17/21 14:39 Dose: 10 ml Documented by: Sodium Chloride (Sodium Chloride 0.9% 2.5 Ml Syringe) 2.5 ml FLUSH ASDIRECTED PRN PRN Reason: Keep Vein Open Last Admin: 07/17/21 14:39 Dose: 2.5 ml Documented by: Discontinued Medications Albuterol (Albuterol 8 Gm Inhaler) 5 gm INH ONETIME ONE Stop: 07/17/21 14:19 Last Admin: 07/17/21 14:39 Dose: Not Given Documented by: Albuterol (Albuterol 0.083% 2.5 Mg/3 Ml Neb Soln) 5 mg NEB ONETIME ONE Stop: 07/17/21 14:32 Last Admin: 07/17/21 14:34 Dose: 5 mg Documented by: Albuterol (Albuterol 0.083% 2.5 Mg/3 Ml Neb Soln) Confirm Administered Dose 2.5 mg .ROUTE .STK-MED ONE Stop: 07/17/21 14:33 Last Admin: 07/17/21 14:40 Dose: Not Given Documented by: Baricitinib (Baricitinib 2 Mg Tab) 4 mg PO Q24H [facility] Last Admin: 07/17/21 22:51 Dose: Not Given Documented by: Dexamethasone (Dexamethasone 4 Mg/Ml Sdv) 6 mg IVPUSH ONETIME ONE Stop: 07/17/21 14:11 Last Admin: 07/17/21 14:31 Dose: 6 mg Documented by: Enoxaparin Sodium (Enoxaparin 40 Mg/0.4 Ml Syringe) 40 mg SUBCUT Q12HR [facility] Last Admin: 07/17/21 22:52 Dose: Not Given Documented by: Remdesivir 200 mg/ Sodium (Chloride) 250 mls @ 250 mls/hr IV ONETIME ONE Stop: 07/17/21 14:11 Last Admin: 07/17/21 15:17 Dose: 250 mls/hr Documented by: Remdesivir 200 mg/ Sodium (Chloride) 250 mls @ 250 mls/hr IV ONETIME ONE Stop: 07/17/21 15:29 Last Admin: 07/17/21 17:07 Dose: Not Given Documented by: Remdesivir 100 mg/ Sodium (Chloride) 100 mls @ 100 mls/hr IV Q24H [facility] Stop: 07/21/21 14:59 Last Admin: 07/21/21 13:54 Dose: 100 mls/hr Documented by: Iopamidol (Iopamidol 755 Mg/Ml 500 Ml Multipack Bottle) 100 ml IVPUSH ONETIME STA Stop: 07/17/21 17:57 Last Admin: 07/17/21 17:56 Dose: 100 ml Documented by: Labetalol HCl (Labetalol 100 Mg/20 Ml Mdv) 10 mg IVPUSH ONETIME ONE; Protocol Stop: 07/22/21 09:34 - Patient Data Lab Results Last 24 hrs: Laboratory Results - last 24 hr 07/22/21 07/22/21 Range/Units 05:43 05:43 WBC 10.47 (4.0-11.0) K/uL RBC 5.44 (4.50-5.90) M/uL Hgb 14.8 (13.0-17.0) g/dL Hct 46.4 (38.0-50.0) % MCV 85.3 (80.0-98.0) fL MCH 27.2 (27.0-32.0) pg MCHC 31.9 (31.0-37.0) g/dL RDW Std Deviation 47.8 (28.0-62.0) fl RDW Coeff of Mary Anne 15 (11.0-15.0) % Plt Count 279 (150-400) K/uL MPV 10.60 (7.40-12.00) fL Add Manual Diff YES Neutrophils % (Manual) 79 (48.0-80.0) % Band Neutrophils % 1 % Lymphocytes % (Manual) 10 L (16.0-40.0) % Monocytes % (Manual) 5 (0.0-15.0) % Eosinophils % (Manual) 1 (0.0-7.0) % Metamyelocytes % 3 % Myelocytes % 1 % Nucleated RBC % 0.0 /100WBC Absolute Seg Neuts 8.3 H (1.4-5.7) Band Neutrophils # 0.1 Lymphocytes # (Manual) 1.0 (0.6-2.4) Monocytes # (Manual) 0.5 (0.0-0.8) Eosinophils # (Manual) 0.1 (0.0-0.7) Absolute Metamyelocyte 0.3 Absolute Myelocytes 0.1 Nucleated RBCs # 0 K/uL Sodium 138 (136-148) mmol/L Potassium 4.6 (3.5-5.1) mmol/L Chloride 101 (98-107) mmol/L Carbon Dioxide 30.2 (21.0-32.0) mmol/L BUN 13 (7.0-18.0) mg/dL Creatinine 0.7 L (0.8-1.3) mg/dL Est Cr Clr Drug Dosing 130.87 mL/min Estimated GFR (MDRD) > 60.0 ml/min Glucose 133 H (74-106) mg/dL Calcium 7.9 L (8.5-10.1) mg/dL Total Bilirubin 0.4 (0.2-1.0) mg/dL AST 18 (15-37) IU/L ALT 48 (14-63) IU/L Alkaline Phosphatase 53 (46-116) U/L Total Protein 6.4 (6.4-8.2) g/dL Albumin 2.5 L (3.4-5.0) g/dL Globulin 3.9 (2.6-4.0) g/dL Albumin/Globulin Ratio 0.6 L (0.9-1.6) Result Diagrams: 07/22/21 05:43 07/22/21 05:43 Juve Results Last 24 hrs: Microbiology 07/17/21 14:35 Aerobic Blood Culture - Preliminary Blood - Venous - Lab Draw NO GROWTH AFTER 4 DAYS Anaerobic Blood Culture - Preliminary NO GROWTH AFTER 4 DAYS 07/17/21 14:20 Aerobic Blood Culture - Preliminary Blood - Venous NO GROWTH AFTER 4 DAYS Anaerobic Blood Culture - Preliminary NO GROWTH AFTER 4 DAYS Sepsis Event Note - Evaluation Sepsis Screening Result: No Definite Risk - Focused Exam Vital Signs: Vital Signs Temp Pulse Resp BP Pulse Ox 07/22/21 10:05 130/94 H 07/22/21 08:07 98.2 F 64 20 158/98 H 92 L 07/22/21 03:39 97 F 67 20 149/89 H 94 L 07/21/21 23:38 97 F 71 21 H 147/90 H 92 L - Problem List & Annotations (1) COVID SNOMED Code(s): 464900903 Code(s): U07.1 - COVID-19 Status: Acute Current Visit: Yes (2) Hypoxia SNOMED Code(s): 242242008 Code(s): R09.02 - HYPOXEMIA Status: Acute Current Visit: Yes - My Orders Last 24 Hours: My Active Orders 07/22/21 10:25 Ready for Discharge [RC] PER UNIT ROUTINE - Assessment Assessment:: 55 yomale admitted for Acute respiratory failure secondary to COVID-19 pneumonia Hypoxia: on 2 L NC COVID;19 continue dexamethasone, baricitinib, and remdesivir lovenox for DVT prophylaxis - Plan Plan:: .
--- NOTE | 2021-07-22 10:37 | PCM.DCSUM1 ---
Discharge Summary - Hospital Course Free Text/Narrative:: The patient is a 55-year-old obese male, with no significant past medical history, who was admitted to the medical floor due to COVID-19 pneumonia. During his hospital course the patient was on a variety of different medications in order to treat his COVID-19 including remdesivir per IV route, dexamethasone per oral route, baricitinib per oral route, Combivent for shortness of breath, Tessalon Perles for congestion, and Robitussin for cough. He was also supplied oxygen and had various fluctuations in his demand, he was on CPAP, high flow nasal cannula, and finally nasal cannula. He will be sent home with a home oxygen apparatus via [employer] in order to be used when needed. He will also be sent home on a 5-day course of dexamethasone 6 mg to be taken daily, as well as Robitussin cough syrup for symptomatic relief. The patient has been advised to return to the hospital if he has increasing respiratory difficulty, shortness of breath, chest pain, and/or palpitations. He has also been educated on being compliant with his medication and taking them at scheduled times. The patient does not have a primary care provider but states that he would obtain one and follow-up with him/her in 1 to 2 weeks time. The patient is now stable and can be safely discharged home. - Discharge Data Discharge Date: 07/22/21 Discharge Disposition: Home, Self-Care 01 Condition: Good - Referral to Home Health Primary Care Physician: PCP None - Discharge Diagnosis/Problem(s) (1) COVID SNOMED Code(s): 283713474 ICD Code: U07.1 - COVID-19 Status: Acute Current Visit: Yes (2) Hypoxia SNOMED Code(s): 066963293 ICD Code: R09.02 - HYPOXEMIA Status: Acute Current Visit: Yes - Patient Instructions Diet: Regular Diet as Tolerated Activity: As Tolerated Showering/Bathing: May Shower Notify Provider of: Fever Other/Special Instructions: -Return to the hospital if you have increasing respiratory difficulty, shortness of breath, chest pain, and/your palpitations. -Be compliant with your medications and take them at scheduled times. -Use your home oxygen apparatus as needed - Discharge Plan Prescriptions/Med Rec: dexAMETHasone [Dexamethasone] 6 mg PO Q24H 5 Days #8 tablet guaiFENesin [Robitussin] 200 mg PO Q4H PRN #120 ml PRN Reason: cough Home Medications: Home Meds Albuterol/Ipratropium [Combivent Respimat] 0 gm INH QID PRN inhaler 07/22/21 [Rx] dexAMETHasone [Dexamethasone] 6 mg PO Q24H 5 Days #8 tablet 07/22/21 [Rx] guaiFENesin [Robitussin] 200 mg PO Q4H PRN #120 ml 07/22/21 [Rx] Oxygen Therapy Mode: Nasal Cannula Oxygen Flow Rate (L/min): 1.5 (Use 1.5 liters of oxygen when needed) Patient Handouts: COVID-19 Referrals: PCP,None [Primary Care Provider] - Umberto Boucher MD [Ordering Only Provider] - 08/05/21 12:30 pm - Discharge Summary/Plan Comment DC Time >30 min.: Yes Total # of Minutes for Discharge Time: 35 minutes - Review of Systems General: Denies: Fever, Fatigue, Night Sweats HEENT: Denies: Headaches, Sore Throat Pulmonary: Reports: Shortness of Breath. Denies: Cough Cardiovascular: Denies: Chest Pain, Palpitations Gastrointestinal: Denies: Abdominal Pain Genitourinary: Denies: Dysuria - Patient Data Vitals - Most Recent: Last Vital Signs Temp 98.2 F 07/22/21 08:07 Pulse 64 07/22/21 08:07 Resp 20 07/22/21 08:07 BP 130/94 H 07/22/21 10:05 Pulse Ox 92 L 07/22/21 08:07 Weight - Most Recent: 344 lb 12.847 oz I&O - Last 24 hours: Intake & Output 07/21/21 07/22/21 07/22/21 22:59 06:59 14:59 Intake Total 1500 2000 Output Total 900 1650 Balance 600 350 Lab Results - Last 24 hrs: Laboratory Results - last 24 hr 07/22/21 07/22/21 Range/Units 05:43 05:43 WBC 10.47 (4.0-11.0) K/uL RBC 5.44 (4.50-5.90) M/uL Hgb 14.8 (13.0-17.0) g/dL Hct 46.4 (38.0-50.0) % MCV 85.3 (80.0-98.0) fL MCH 27.2 (27.0-32.0) pg MCHC 31.9 (31.0-37.0) g/dL RDW Std Deviation 47.8 (28.0-62.0) fl RDW Coeff of Mary Anne 15 (11.0-15.0) % Plt Count 279 (150-400) K/uL MPV 10.60 (7.40-12.00) fL Add Manual Diff YES Neutrophils % (Manual) 79 (48.0-80.0) % Band Neutrophils % 1 % Lymphocytes % (Manual) 10 L (16.0-40.0) % Monocytes % (Manual) 5 (0.0-15.0) % Eosinophils % (Manual) 1 (0.0-7.0) % Metamyelocytes % 3 % Myelocytes % 1 % Nucleated RBC % 0.0 /100WBC Absolute Seg Neuts 8.3 H (1.4-5.7) Band Neutrophils # 0.1 Lymphocytes # (Manual) 1.0 (0.6-2.4) Monocytes # (Manual) 0.5 (0.0-0.8) Eosinophils # (Manual) 0.1 (0.0-0.7) Absolute Metamyelocyte 0.3 Absolute Myelocytes 0.1 Nucleated RBCs # 0 K/uL Sodium 138 (136-148) mmol/L Potassium 4.6 (3.5-5.1) mmol/L Chloride 101 (98-107) mmol/L Carbon Dioxide 30.2 (21.0-32.0) mmol/L BUN 13 (7.0-18.0) mg/dL Creatinine 0.7 L (0.8-1.3) mg/dL Est Cr Clr Drug Dosing 130.87 mL/min Estimated GFR (MDRD) > 60.0 ml/min Glucose 133 H (74-106) mg/dL Calcium 7.9 L (8.5-10.1) mg/dL Total Bilirubin 0.4 (0.2-1.0) mg/dL AST 18 (15-37) IU/L ALT 48 (14-63) IU/L Alkaline Phosphatase 53 (46-116) U/L Total Protein 6.4 (6.4-8.2) g/dL Albumin 2.5 L (3.4-5.0) g/dL Globulin 3.9 (2.6-4.0) g/dL Albumin/Globulin Ratio 0.6 L (0.9-1.6) MARIA ELENA Results - Last 24 hrs: Microbiology 07/17/21 14:35 Aerobic Blood Culture - Preliminary Blood - Venous - Lab Draw NO GROWTH AFTER 4 DAYS Anaerobic Blood Culture - Preliminary NO GROWTH AFTER 4 DAYS 07/17/21 14:20 Aerobic Blood Culture - Preliminary Blood - Venous NO GROWTH AFTER 4 DAYS Anaerobic Blood Culture - Preliminary NO GROWTH AFTER 4 DAYS Med Orders - Current: Current Medications Acetaminophen (Acetaminophen 325 Mg Tab) 650 mg PO Q4H PRN PRN Reason: Pain (Mild 1-3)/fever Albuterol/Ipratropium (Albuterol/Ipratropium 4 Gm Inhalation [place]) 0 gm INH QID PRN PRN Reason: wheezing Baricitinib (Baricitinib 2 Mg Tab) 4 mg PO Q24H [facility] Last Admin: 07/21/21 22:52 Dose: 4 mg Documented by: Benzonatate (Benzonatate 100 Mg Cap) 100 mg PO Q6H PRN PRN Reason: Cough Last Admin: 07/21/21 14:44 Dose: 100 mg Documented by: Dexamethasone (Dexamethasone 4 Mg Tab) 6 mg PO Q24H [facility] Last Admin: 07/21/21 13:52 Dose: 6 mg Documented by: Enoxaparin Sodium (Enoxaparin 40 Mg/0.4 Ml Syringe) 40 mg SUBCUT Q12H [facility] Last Admin: 07/22/21 06:27 Dose: 40 mg Documented by: Guaifenesin (Guaifenesin 100 Mg/5 Ml Soln 5 Ml Ud Cup) 200 mg PO Q4H PRN PRN Reason: cough Last Admin: 07/22/21 10:32 Dose: 200 mg Documented by: Simethicone (Simethicone 80 Mg Tab.Chew) 80 mg PO TIDAC PRN PRN Reason: Gas Last Admin: 07/19/21 23:26 Dose: 80 mg Documented by: Sodium Chloride (Sodium Chloride 0.9% 10 Ml Syringe) 10 ml FLUSH ASDIRECTED PRN PRN Reason: Keep Vein Open Last Admin: 07/17/21 14:39 Dose: 10 ml Documented by: Sodium Chloride (Sodium Chloride 0.9% 2.5 Ml Syringe) 2.5 ml FLUSH ASDIRECTED PRN PRN Reason: Keep Vein Open Last Admin: 07/17/21 14:39 Dose: 2.5 ml Documented by: Discontinued Medications Albuterol (Albuterol 8 Gm Inhaler) 5 gm INH ONETIME ONE Stop: 07/17/21 14:19 Last Admin: 07/17/21 14:39 Dose: Not Given Documented by: Albuterol (Albuterol 0.083% 2.5 Mg/3 Ml Neb Soln) 5 mg NEB ONETIME ONE Stop: 07/17/21 14:32 Last Admin: 07/17/21 14:34 Dose: 5 mg Documented by: Albuterol (Albuterol 0.083% 2.5 Mg/3 Ml Neb Soln) Confirm Administered Dose 2.5 mg .ROUTE .STK-MED ONE Stop: 07/17/21 14:33 Last Admin: 07/17/21 14:40 Dose: Not Given Documented by: Baricitinib (Baricitinib 2 Mg Tab) 4 mg PO Q24H [facility] Last Admin: 07/17/21 22:51 Dose: Not Given Documented by: Dexamethasone (Dexamethasone 4 Mg/Ml Sdv) 6 mg IVPUSH ONETIME ONE Stop: 07/17/21 14:11 Last Admin: 07/17/21 14:31 Dose: 6 mg Documented by: Enoxaparin Sodium (Enoxaparin 40 Mg/0.4 Ml Syringe) 40 mg SUBCUT Q12HR [facility] Last Admin: 07/17/21 22:52 Dose: Not Given Documented by: Remdesivir 200 mg/ Sodium (Chloride) 250 mls @ 250 mls/hr IV ONETIME ONE Stop: 07/17/21 14:11 Last Admin: 07/17/21 15:17 Dose: 250 mls/hr Documented by: Remdesivir 200 mg/ Sodium (Chloride) 250 mls @ 250 mls/hr IV ONETIME ONE Stop: 07/17/21 15:29 Last Admin: 07/17/21 17:07 Dose: Not Given Documented by: Remdesivir 100 mg/ Sodium (Chloride) 100 mls @ 100 mls/hr IV Q24H [facility] Stop: 07/21/21 14:59 Last Admin: 07/21/21 13:54 Dose: 100 mls/hr Documented by: Iopamidol (Iopamidol 755 Mg/Ml 500 Ml Multipack Bottle) 100 ml IVPUSH ONETIME STA Stop: 07/17/21 17:57 Last Admin: 07/17/21 17:56 Dose: 100 ml Documented by: Labetalol HCl (Labetalol 100 Mg/20 Ml Mdv) 10 mg IVPUSH ONETIME ONE; Protocol Stop: 07/22/21 09:34 - Exam General: Reports: Alert, Oriented, Cooperative HEENT: Reports: Mucous Membr. Moist/[place] Neck: Reports: Trachea Midline Lungs: Reports: Clear to Auscultation, Normal Respiratory Effort Cardiovascular: Reports: Regular Rate, Regular Rhythm, No Murmurs GI/Abdominal Exam: Normal Bowel Sounds, Soft, Non-Tender
[2021-07-22] MEDS: Dexamethasone 4 MG Tab PO SCH (13:38)
== END 2021-07-22 13:45 | disposition home or self-care (01) | DRG 177 ==
LOC: MW.ED 13:50 → MW.MS 16:48
PROVIDERS: ADMIT Internal Medicine; ATTEND Internal Medicine
PROC: XW033E5 Introduction of Remdesivir Anti-infective into Peripheral Vein, Percutaneous Approach, New Technology Group 5 (ICD-10-PCS; principal; 2021-07-17)
PROC: 3E0333Z Introduction of Anti-inflammatory into Peripheral Vein, Percutaneous Approach (ICD-10-PCS; 2021-07-17)
PROC: XW0DXM6 Introduction of Baricitinib into Mouth and Pharynx, External Approach, New Technology Group 6 (ICD-10-PCS; 2021-07-17)
PROC: 3E0DX3Z Introduction of Anti-inflammatory into Mouth and Pharynx, External Approach (ICD-10-PCS; 2021-07-18)
PROC: 5A09357 Assistance with Respiratory Ventilation, Less than 24 Consecutive Hours, Continuous Positive Airway Pressure (ICD-10-PCS; 2021-07-19)
DX: U07.1 COVID-19 (principal); J12.82 Pneumonia due to coronavirus disease 2019; J96.01 Acute respiratory failure with hypoxia; Z68.42 Body mass index [BMI] 45.0-49.9, adult; M19.90 Unspecified osteoarthritis, unspecified site; E66.9 Obesity, unspecified
CPT/HCPCS: 36415; 71045; 71045-26; 71275; 71275-26; 80053; 81001; 83605; 83880; 84484; 85025; 85379; 85610; 86140; 87040; 94640; 94660; 96365; 96375; 99285-25; A9270-GY; J1100; J1650; J7050; J8540; Q9967